=== PATIENT | female | born 1965 | race Caucasian/White ===

== ENCOUNTER → 2017-11-27 14:28 | Outpatient (CLI) | payer OTHER, SELFPAY | PROVIDERS: PCP Family Medicine; Visit Provider Family Medicine | DX: G47.33 Obstructive sleep apnea (adult) (pediatric) (principal) | CPT/HCPCS: 95806 ==

== ENCOUNTER → 2019-01-02 19:51 | Outpatient (CLI) | payer OTHER, SELFPAY | PROVIDERS: PCP Family Medicine; Visit Provider Family Medicine | DX: G47.30 Sleep apnea, unspecified (principal); R06.83 Snoring; I10 Essential (primary) hypertension | CPT/HCPCS: 95810 ==

== ENCOUNTER 2020-11-14 07:37 | Emergency (ER) | payer OTHER, SELFPAY ==
[2020-11-14] VITALS (12 sets, daily range): BP systolic 113–160; BP diastolic 70–100; PULSE 56–79; RESP 11–22; TEMP 36.6–37.1; O2SAT 92–98; BMI 32.2
--- NOTE | 2020-11-14 07:36 | ECG_ITS ---
APPROVED REPORT Exam: Resting ECG HR:76 bpm ECG Measurements Heart Rate 76 AXES OK 146 P 35 QRSd 96 QRS 18 QT 386 T 31 QTc 434 Conclusion Normal sinus rhythm Normal ECG Electronically signed by : Curtis Cast MD 11/16/2020 21:11:47
--- NOTE | 2020-11-14 07:38 | XR_ITS ---
PROCEDURE: XR CHEST 2V CLINICAL HISTORY: Chest Pain COMPARISON: CR CXR CHEST(2 VIEWS-NOT PORTABLE) from 12/18/[address] CHEST W/ CONTRAST from 02/08/2015 FINDINGS: The cardiomediastinal silhouette and pulmonary vascularity are within normal limits. The lungs are clear without infiltrates, suspicious nodules, or pleural effusions. Calcified node in the subcarinal region. Lumbar curvature convex left. IMPRESSION: No acute findings. Dictated by: Leandro Tejada MD 11/14/2020 09:47 Leandro Tejada MD in [place] 11/14/2020 09:47
[2020-11-14 07:49] LABS: Basophils # 0.1 K/mm3 (0-0.2); Basophils % 1.6 % (0.1-2.0); Eosinophils # 0.4 K/mm3 (0.0-0.4); Eosinophils % 5.9 % (0.1-12.0); Hematocrit 42.9 % (37.0-47.0); Hemoglobin 14.2 g/dL (12.2-16.2); Lymphocytes # 2.8 K/mm3 (0.7-4.5); Mean Corpuscular Hemoglobin 30.4 pg (27.0-31.2); Mean Corpuscular Volume 92.1 fl (81-99); Monocytes # 0.3 K/mm3 (0.1-1.0); Monocytes % 4.1 % (1.7-9.3); Neutrophils # 2.6 K/mm3 (1.8-7.8); Neutrophils % 42.5 % (37.0-80.0); Platelet Count 313 K/mm3 (142-424); Red Blood Count 4.66 M/mm3 (4.20-5.40); Red Cell Distribution Width 13.1 % (11.5-17.5); White Blood Count 6.1 K/mm3 (4.8-10.8)
[2020-11-14 07:57] LABS: Anion Gap 10.4 mEq/L (5-15); Blood Urea Nitrogen 8 mg/dl (7-17); Calcium 9.1 mg/dl (8.4-10.2); Carbon Dioxide 30 mmol/L (22.0-30.0); Chloride 106 mmol/L (98-107); Creatinine Clearance Estimated 109 mL/min (50-200); Estimated Glomerular Filt Rate 75 ml/min (>60); GFR (African American) 91 ML/MIN (>60); Glucose 129 mg/dl (74-100); Potassium 3.4 mmoL/L (3.5-5.1); Sodium 143 mmol/L (136-145)
--- NOTE | 2020-11-14 07:57 | CA_ITS ---
APPROVED REPORT EXAM: Comprehensive 2D, Doppler, and color-flow Echocardiogram General Manager Road Production: Glenny Kimbrough CRT Ht: 5 ft 4 in Wt: 188lbs BSA: 1.91 BP: 113/75 mmHg Indications: Chest Pain, Murmur, Shortness of Breath, Obesity, Palpitations, Hyperlipidemia, Hypertension/HDD 2D Dimensions LVOT 1.95 cm (M/F) 1.5-2.5 LA Volume 43.80 mL LA Volume Index 22.90 mL/m2 (M/F) 16-34 M-Mode Dimensions RVDd 2.97 cm (0.9-2.6) LA Diam 4.04 cm (1.9-4.0) LVDd 5.17 cm (3.5-5.7) Ao Diam 3.69 cm (2.0-3.7) LVDs 3.48 cm (3.5-5.7) IVSd 1.42 cm (0.6-1.1) PWd 1.12 cm (0.6-1.1) EF (Teich) 60.70% FS 32.70% EDV (Teich) 127.80 mL TAPSE 1.83 (<1.7) ESV (Teich) 50.20 mL LV Diastology E Decel Time 450.00 (160-240 msec) E/A Ratio 0.79 MED E' 6.50 (< 7 cm/sec) MED A' 7.50 cm/s E'/MED E' Ratio 8.75 (>14) LAT E' 6.80 (<10 cm/sec) LAT A' 5.00 cm/s E/LAT E' Ratio 8.37 (>14) Aortic Valve AI PHT 474.00 ms AO Peak GR. 5.50 mmHg Mitral Valve MV A Velocity 72.00 (40-130 cm/s) E/A Ratio 0.79 MV Decel. Time 450.00 (160-240 ms) Pulmonary Valve PV Peak Velocity 73.00 (50-150 cm/s) Tricuspid Valve TR P. Velocity 183.00 cm/s RAP Estimate 10.00 mmHg RVSP 23.50 mmHg Left Ventricle Technically difficult study because of the patient factors and poor acoustic windows. Endocardial borders are poorly visualized. Left atrium is mildly enlarged, left ventricle is normal size, mild concentric left ventricular hypertrophy, visually estimated ejection fraction 50% with no obvious regional wall motion abnormality, grade 1 diastolic dysfunction seen without tissue Doppler evidence of raise left atrial pressure. Right Ventricle Right atrium and right ventricle are mildly enlarged with normal contractility. Aortic Valve Aortic valve is minimally thickened and fibrosed, there is no aortic stenosis or aortic insufficiency. Mitral Valve Mitral valve is grossly normal, there is mild mitral regurgitation. Tricuspid Valve Tricuspid valve is grossly normal, there is mild tricuspid regurgitation, tricuspid regurgitation jet velocity is inadequate for calculation of the right ventricular systolic pressure. Pulmonic Valve Pulmonic valve is poorly visualized. Great Vessels Aortic root is normal size. Inferior vena cava is poorly visualized. Pericardium No significant pericardial effusion noted. Conclusion 1. Technically difficult study because of the patient factors and poor acoustic windows. Endocardial borders are poorly visualized. Mild biatrial enlargement, normal left ventricular size, visually estimated ejection fraction approximately 50% with no obvious regional wall motion abnormality, grade 1 diastolic dysfunction seen without tissue Doppler evidence of raise left atrial pressure. 2. Mildly enlarged right ventricle with normal contractility. 3. Mild mitral and tricuspid regurgitation. 4. No significant pericardial effusion noted. Electronically signed by : Oleksandr Mcfarlane MD 11/14/2020 21:25:40
[2020-11-14 08:15] LABS: Troponin I < 0.01 ng/ml (0.00-0.034)
[2020-11-14 08:15] LABS: Coronavirus 19, PCR Not Detected (NotDetected); Influenza A, PCR Not Detected (NotDetected); Influenza B, PCR Not Detected (NotDetected)
--- NOTE | 2020-11-14 08:48 | HMH.EDCP ---
ED Disposition Clinical Impression: Nonspecific chest pain Disposition: Home, Self-Care Condition on Discharge: Good Instructions: DI for Atypical Chest Pain Referrals: Chong Sheridan MD [Primary Care Provider] - Joey Langford MD [Staff Physician] - - Critical Care Critical Care Time: No Attestation: On 11/14/20, the high probability of a clinically significant, sudden or life threatening deterioration of the following system(s) required my full and direct attention, intervention and personal management. The time I documented below is in addition to time spent performing reported procedures but includes the following listed in this critical care notation. Medical Decision Making - Medical Records Medical records reviewed: Yes: I reviewed the patient's medical records. - Giovany Inquiry Pt receiving controlled substance: No Vital Signs: 11/14/20 07:37 11/14/20 07:52 11/14/20 08:00 Temperature 98.8 F Temperature Source Oral Pulse Rate 79 71 Pulse Rate [Radial] 76 Respiratory Rate 22 12 14 Blood Pressure 136/77 117/77 Blood Pressure [Right Arm] 160/100 H Blood Pressure Mean 90 Blood Pressure Mean [Right Arm] 120 Blood Pressure Position [Right Arm] Sitting 02 Sat by Pulse Oximetry 98 95 93 L Oxygen Delivery Method Room Air 11/14/20 08:15 11/14/20 08:30 11/14/20 08:46 Temperature Temperature Source Pulse Rate 64 68 72 Pulse Rate [Radial] Respiratory Rate 12 13 14 Blood Pressure 128/70 114/77 113/75 Blood Pressure [Right Arm] Blood Pressure Mean Blood Pressure Mean [Right Arm] Blood Pressure Position [Right Arm] 02 Sat by Pulse Oximetry 98 96 96 Oxygen Delivery Method 11/14/20 09:00 11/14/20 09:15 11/14/20 09:30 Temperature Temperature Source Pulse Rate 65 56 L 59 L Pulse Rate [Radial] Respiratory Rate 20 12 11 L Blood Pressure 120/74 116/70 125/74 Blood Pressure [Right Arm] Blood Pressure Mean Blood Pressure Mean [Right Arm] Blood Pressure Position [Right Arm] 02 Sat by Pulse Oximetry 92 L 96 94 L Oxygen Delivery Method 11/14/20 09:45 11/14/20 10:00 Temperature Temperature Source Pulse Rate 63 61 Pulse Rate [Radial] Respiratory Rate 11 L 12 Blood Pressure 122/79 122/83 Blood Pressure [Right Arm] Blood Pressure Mean Blood Pressure Mean [Right Arm] Blood Pressure Position [Right Arm] 02 Sat by Pulse Oximetry 96 96 Oxygen Delivery Method - Lab Data Lab Results 11/14/20 07:43: WBC 6.1, RBC 4.66, Hgb 14.2, Hct 42.9, MCV 92.1, MCH 30.4, MCHC 33.0, RDW 13.1, Plt Count 313, MPV 8.0, Neut % (Auto) 42.5, Lymph % (Auto) 46.0, Teller % (Auto) 4.1, Eos % (Auto) 5.9, Baso % (Auto) 1.6, Neut # (Auto) 2.6, Lymph # (Auto) 2.8, Teller # (Auto) 0.3, Eos # (Auto) 0.4, Baso # (Auto) 0.1 11/14/20 07:43: Sodium 143, Potassium 3.4 L, Chloride 106, Carbon Dioxide 30, Anion Gap 10.4, BUN 8, Creatinine 0.80, Estimated Creat Clear 109, Estimated GFR 75, Est GFR ( Amer) 91, Glucose 129 H, Calcium 9.1, Troponin I < 0.01 11/14/20 08:00: SARS-CoV-2 (PCR) Not detected, Influenza A Untype (PCR) Not detected, Influenza Type B (PCR) Not detected 11/14/20 10:40: Troponin I < 0.01 Result diagrams: 11/14/20 07:43 11/14/20 07:43 Orders (Tests/Meds): ED MEDICATIONS Generic Name Dose Route Start Last Admin Trade Name Freq PRN Reason Stop Dose Admin Nitroglycerin 0.4 mg 11/14/20 07:53 11/14/20 07:46 Nitroglycerin 0.4mg Sl Tablet SL 12/14/20 07:52 0.4 mg Q5MINP PRN Administration Chest Pain ORDERS Category Date Time Status Troponin I Q3H Lab 11/14/20 13:45 Ordered - Radiology Data #1 Image(s): Chest Image Reviewed: Yes I reviewed the patient's radiology results, Yes I reviewed the patient's radiology image, Yes I have reviewed radiologist's interpretation - ECG Data Tracing #1 I reviewed this ECG and interpreted as documented below: ECG initial impression date: 11/14/20 E
--- NOTE | 2020-11-14 08:56 | PC.NURSE ---
echo lab at bedside
--- NOTE | 2020-11-14 09:59 | HMH.CNCARD ---
History of Present Illness Consult date: 11/14/20 Requesting physician: Aleksandr Wood Consult reason: chest pain Chief complaint: chest pain History of present illness: 55-year-old female presented to the ED with midsternal chest pain and dizziness. Patient states her chest pressure had started yesterday while she was getting ready for work. Patient states she has been under a lot of stress at work and felt that the chest pain was more stress related. Patient states while getting ready for work this morning her chest pressure began to where she became dizzy and developed shortness of breath. Patient states chest pain and pressure was radiating down the right arm. Patient states when she arrived to the emergency room and was given a nitroglycerin, her chest pain had been resolved. Patient denies chest pain, tightness or pressure at this time. Patient denies shortness of breath. Patient does state that she has history of asthma and sometimes her asthma attacks will appear. Patient is a non-smoker. Patient has no known history of coronary artery disease. Patient did state 8 years ago she did undergo [facility] in which she was told her heart was fine. No stents were implemented. Patient does complain of dizziness especially with position change. Patient states she does have history of inner ear issues. Patient has history of hypertension and hyperlipidemia. These are well managed with appropriate medications. Patient has no history of diabetes. History of coronary artery disease in the family. No swelling noted of the lower extremities. Patient denies palpitations. ED initial work-up is being performed. Serial troponins have been drawn. Troponin x1 is negative. EKG revealed normal sinus rhythm with a heart rate of 76 bpm. Chest x-ray revealed no acute findings. Vital signs are stable. Discussed plan of care with Dr. Langford. Orders and recommendations were received from Dr. Langford. No plans for left heart catheterization at this time. Troponin x1 was negative. Will wait on second troponin and if second troponin is negative patient may to be discharged home. Patient will need to follow-up with cardiology within the week and will recommend outpatient testing such as Myoview stress test. Echocardiogram to assess LV function and valve status today. Preliminary echocardiogram reveals EF 50 to 55% with no regional wall motion abnormality. Awaiting on official echocardiogram results. Pending on the echocardiogram results, medication and treatment therapies may be recommended. Patient is currently on beta-gisele and statin. Please notify cardiology of any changes in patient status. Thank you for allowing cardiology to participate in the care of this patient. [facility] History I have reviewed the patient's past medical history: Yes Medical History: Reports:: Lung Disease (asthma) Denies:: Diabetes Mellitus Type 1, Diabetes Mellitus Type 2, Seizures *Have you ever received a pneumonia vaccine?: Yes *Have you received a flu vaccine this season?: Yes Other Medical History: Denies: Blood Transfusion Reaction Laterality Cases: Bilateral: Tonsillectomy - *Social History Smoking Status: Never smoker Alcohol Intake: never *Occupational Status:: unemployed Household Members: spouse *Travel in the last 8 weeks: Inside the [facility] Family Hx:: No significant family history Meds Home Medications Medication Instructions Recorded Confirmed Type Bisoprolol Fumarate [Bisoprolol 5 mg PO DAILY 11/14/20 11/14/20 History 5mg Tablet] Buspirone HCl [Buspirone 15 mg 15 mg PO BID 11/14/20 11/14/20 History Tablets] Citalopram Hydrobromide 40 mg PO DAILY 11/14/20 11/14/20 History [Citalopram 40mg Tablet] Duloxetine HCl 60 mg PO DAILY 11/14/20 11/14/20 History Furosemide [Lasix 20mg tab] 20 mg PO BID 11/14/20 11/14/20 History Pantoprazole Sodium [Protonix
[2020-11-14 11:10] LABS: Troponin I < 0.01 ng/ml (0.00-0.034)
== END 2020-11-14 11:32 | disposition home or self-care (01) ==
PROVIDERS: Emergency Provider Emergency Medicine; PCP Family Medicine
DX: R07.9 Chest pain, unspecified (principal); K21.9 Gastro-esophageal reflux disease without esophagitis; Z20.822 Contact with and (suspected) exposure to COVID-19; J45.909 Unspecified asthma, uncomplicated; Z88.0 Allergy status to penicillin; Z88.2 Allergy status to sulfonamides; Z79.899 Other long term (current) drug therapy
CPT/HCPCS: 36415; 71046; 80048; 84484; 85025; 93005; 93306; 99284; C9803; U0003; U0005

== ENCOUNTER → 2020-12-05 06:58 | Outpatient (CLI) | payer SELFPAY ==
--- NOTE | 2020-12-05 06:59 | CT_ITS ---
PROCEDURE: CT HEART W CALCIUM SCORE CLINICAL HISTORY: chest pain COMPARISON: No exams were available for comparison TECHNIQUE: Axial images obtained with sagittal and coronal reformats. All CT scans at the facility use one or more dose reduction, viz: automated exposure control, ma/kV adjustment per patient size (including targeted exams where dose is matched to indication, i.e. head), or iterative reconstruction technique. FINDINGS: The coronary artery calcium score is 32. Mild calcific plaque burden with moderate cardiovascular disease risk IMPRESSION: Mild calcific plaque burden with moderate cardiovascular disease risk Dictated by: Leandro Tejada MD 12/09/2020 12:55 Leandro Tejada MD in [place] 12/09/2020 12:55
== END ==
PROVIDERS: PCP Family Medicine; Visit Provider Internal Medicine Cardiovascular Disease
DX: Z13.6 Encounter for screening for cardiovascular disorders (principal); Z82.49 Family history of ischemic heart disease and other diseases of the circulatory system
CPT/HCPCS: 75571

== ENCOUNTER → 2020-12-05 07:05 | Outpatient (CLI) | payer OTHER, SELFPAY ==
--- NOTE | 2020-12-05 07:12 | NM_ITS ---
APPROVED REPORT Exam: Nuclear Stress Test Indication: HTN, HYPERLIPIDEMIA, FM HX., C.P., SOB Patient Location: Outpatient Stress Tech: Martha Collins [place] Tech:MARIA ELENA Lenz RT (R)(N)(M) Ht: 5 ft 4 in Wt: 193 lbs Bra Size: A HR: 64 bpm BP: 154/88 mmHg BSA: 1.93 m2 BMI: 33.1 History: HTN, HYPERLIPIDEMIA, FM HX., C.P., SO Procedure: Patient received a 0.4 mg of intravenous Lexiscan, resting heart rate 64 bpm, resting blood pressure 154/88 mmHg, with Lexiscan maximum heart rate achived was 87 bpm which is % of the maximum predicted heart rate and blood pressure was 152/87 mmHg. With Lexiscan, patient denied any complaint of chest pain. PT C/O DIZZINESS, AND NAUSEA NO PRONE IMAGES COULD BE PERFORMED Electrocardiogram Resting electrocardiogram showed sinus rhythm, with Lexiscan there is less than 1.[address] segment depression noted from the baseline EKG. The EKG portion of the Lexiscan is nondiagnostic. Cardiac Stress and Resting SPECT Images: Cardiac Stress and Resting SPECT images were obtained using technetium 99m Myoview 30.0 mCi stress and 10.74 mCi at rest. Gated SPECT for analysis of segmental wall motion and calculation of the ejection fraction also done. Prone images were not obtained. Cardiac stress and resting SPECT images show mild reversible defect involving the anterior apical wall, computer derived ejection fraction is 49% with no regional wall motion abnormality, right ventricle is normal size and contractility. Conclusion: 1. The EKG portion of the Lexiscan is nondiagnostic. 2. Scintigraphic evidence of mild reversible ischemia involving the anterior apical wall, computer derived ejection fraction is 49% with no regional wall motion abnormality, right ventricle is normal size and contractility. 3. Abnormal Lexiscan Myoview study. Electronically signed by : Oleksandr Mcfarlane MD 12/05/2020 21:12:32
--- NOTE | 2020-12-05 08:08 | CA_ITS ---
APPROVED REPORT EXAM: Limited 2D Echocardiogram Certified Prosthetist: Tala Hernández RVT Ht: 5 ft 1 in Wt: 193lbs BSA: 1.86 BP: 148/92 mmHg Indications: CP,SOA,R/O HOCM,HTN,HLD,DEFINITY ONLY Echo Enhancing Agent Indication: Endocardial border delineation Agent(s) / Amount(s) Used: Definity 2 cc Conclusion 1. Limited echocardiogram with Definity contrast was performed. 2. Normal left ventricular size, there is no asymmetrical septal hypertrophy, visually estimated ejection fraction 40%, there is marked hypokinesis involving mid to distal septum and anterior wall. There is no left ventricular thrombus seen. 3. No significant pericardial effusion noted. Electronically signed by : Oleksandr Mcfarlane MD 12/05/2020 21:33:42
--- NOTE | 2020-12-05 09:23 | CA_ITS ---
APPROVED REPORT Exam: Pharmacologic Technologist: PAMELA JIMENEZ, Ht: 5 ft 1 in Wt: 193 lbs BSA: 1.86 m2 HR: 64 bpm BP: 154/88 mmHg Indications: CP Medical History Medications: Trazadone,,,,, Pantoprazole,,,,, Citalopram,,,,, Buspirone,,,,, DulOXETINE,,,,, BisOPROLOL,,,,, Potassium,,,,, Furosemide,,,,, Stress Test Details Test: LEXISCAN HR Resting HR: 64 bpm Max Heart Rate (APMHR): 167 bpm Max HR Achieved: 92 bpm Target HR (85% APMHR): 141 bpm % of APMHR: 55 Recovery HR: 71 bpm BP Resting BP: 154/88 mmHg Max BP: 155/91 mmHg Recovery BP: 144.0/92.0 mmHg ECG Resting ECG: SR with PVC Clinical Exercise duration: 04:18 min Highest Stage Achieved: Exercise capacity: 1.0 METs Stress ECG Conclusion Lexiscan portion completed. Pt c/o shortness of breath during peak infusion. Symptoms: No CP, (+) SOB during peak infusion. Resolved in recovery. Arrhythmias/Ectopy: Occ PVC. ST-T Changes: Less than 1.5mm ST Depression. Conclusion: Images to follow. Electronically signed by : Oleksandr Mcfarlane MD 12/05/2020 21:06:01
== END ==
PROVIDERS: PCP Family Medicine; Visit Provider Internal Medicine Cardiovascular Disease
DX: R06.00 Dyspnea, unspecified (principal); R07.89 Other chest pain; I10 Essential (primary) hypertension; E78.5 Hyperlipidemia, unspecified; R06.83 Snoring; R40.0 Somnolence; Z82.49 Family history of ischemic heart disease and other diseases of the circulatory system
CPT/HCPCS: 78452; 93017; 93308; A9502; J2785; Q9957

== ENCOUNTER → 2020-12-15 10:59 | Outpatient (CLI) | payer OTHER, SELFPAY | PROVIDERS: PCP Family Medicine; Visit Provider Nurse Practitioner Family | DX: R06.00 Dyspnea, unspecified (principal); R07.89 Other chest pain; I10 Essential (primary) hypertension; E78.5 Hyperlipidemia, unspecified; R06.83 Snoring; R40.0 Somnolence; R60.9 Edema, unspecified; Z82.49 Family history of ischemic heart disease and other diseases of the circulatory system | CPT/HCPCS: 93270 ==

== ENCOUNTER → 2020-12-24 09:09 | Outpatient (CLI) | payer OTHER, SELFPAY ==
[2020-12-24 09:40] LABS: Basophils # 0.1 K/mm3 (0-0.2); Basophils % 1.6 % (0.1-2.0); Eosinophils # 0.2 K/mm3 (0.0-0.4); Eosinophils % 4.6 % (0.1-12.0); Hematocrit 42.3 % (37.0-47.0); Hemoglobin 13.8 g/dL (12.2-16.2); Lymphocytes # 2.4 K/mm3 (0.7-4.5); Lymphocytes % 48.4 % (10-50); Mean Corpuscular HGB Conc 32.6 g/dL (31.8-35.4); Mean Corpuscular Hemoglobin 30.2 pg (27.0-31.2); Mean Corpuscular Volume 92.6 fl (81-99); Mean Platelet Volume 8.4 fl (7.4-10.4); Monocytes # 0.3 K/mm3 (0.1-1.0); Neutrophils % 39.5 % (37.0-80.0); Platelet Count 321 K/mm3 (142-424); Red Blood Count 4.57 M/mm3 (4.20-5.40); Red Cell Distribution Width 12.7 % (11.5-17.5)
[2020-12-24 11:00] LABS: Anion Gap 9.8 mEq/L (5-15); Blood Urea Nitrogen 12 mg/dl (7-17); Calcium 9.6 mg/dl (8.4-10.2); Carbon Dioxide 31 mmol/L (22.0-30.0); Chloride 104 mmol/L (98-107); Estimated Glomerular Filt Rate 88 ml/min (>60); GFR (African American) 106 ML/MIN (>60); Glucose 92 mg/dl (74-100); Potassium 3.8 mmoL/L (3.5-5.1); Sodium 141 mmol/L (136-145)
== END ==
PROVIDERS: Visit Provider Nurse Practitioner Family
DX: Z01.812 Encounter for preprocedural laboratory examination (principal); Z11.52 Encounter for screening for COVID-19; R06.00 Dyspnea, unspecified; R42 Dizziness and giddiness; I20.9 Angina pectoris, unspecified; I10 Essential (primary) hypertension; I42.9 Cardiomyopathy, unspecified; R94.39 Abnormal result of other cardiovascular function study; I63.9 Cerebral infarction, unspecified; E78.5 Hyperlipidemia, unspecified; R06.83 Snoring; R40.0 Somnolence; Z82.49 Family history of ischemic heart disease and other diseases of the circulatory system
CPT/HCPCS: 36415; 80048; 85025; C9803; U0003; U0005

== ENCOUNTER 2020-12-26 07:51 | Day surgery (SDC) | payer OTHER, SELFPAY ==
[2020-12-26] VITALS (11 sets, daily range): BP systolic 115–144; BP diastolic 75–86; PULSE 60–70; RESP 16–19; O2SAT 92–100; BMI 35.6
--- NOTE | 2020-12-26 07:06 | IR_ITS ---
APPROVED REPORT Patient Location: Outpatient Cuff Setter: MARIA ELENA Ewing RT (R) PROCEDURES Left heart catheterization Left ventriculogram Selective coronary angiogram INDICATION Worsening angina, Abnormal Myoview, Informed consent was obtained prior to the procedure. COMPLICATIONS NONE Estimated Blood Loss: LESS THAN 10 ML TECHNIQUE One percent lidocaine used to anesthetize the right anterior aspect of the wrist. The right radial artery was accessed via the Seldinger technique. A 6 Upper Sorbian sheath was placed in the right radial artery. 2.5 mg of verapamil, 800 mcg of nitroglycerin, 1mg Lidocaine and 5000 U Heparin were given through the arterial sheath. The trap catheter was also used to perform left heart catheterization, left ventriculogram and selective coronary angiogram. At the end of the procedure the sheath was removed good hemostasis was achieved using Traclet band, patient was transferred to the postop holding area in stable condition. ANGIOGRAPHIC RESULTS The left main artery Normal The left anterior descending artery The proximal segment is without angiographic stenosis as is the entire LAD system. OTTONIEL II flow was present throughout The circumflex artery Codominant large without angiographic stenosis however slow OTTONIEL II flow is present The right coronary artery Is without angiographic stenosis accompanied by OTTONIEL II flow The STEWART ventriculogram reveals Slightly dilated ventricle ejection fraction 45 to 50% The left ventricular end-diastolic pressure 15 mmHg IMPRESSION No angiographic stenosis Diffuse OTTONIEL II flow consistent with moderate to severe endothelial dysfunction Dilated ventricle with slightly reduced ejection fraction Borderline elevated LVEDP PLAN 1. Treatment of endothelial dysfunction 2. Antianginal medications 3. Risk factor modification Electronically signed by : Joey Langford MD 12/26/2020 10:33:22
--- NOTE | 2020-12-26 12:03 | SUR.PHASEII ---
1200- 3ml air removed - no bleeding noted
--- NOTE | 2020-12-26 12:20 | SUR.PHASEII ---
1215- 3ml air released, no bleeding noted
--- NOTE | 2020-12-26 12:31 | SUR.PHASEII ---
1230- 3ml air released, no bleeding noted
--- NOTE | 2020-12-26 12:49 | SUR.PHASEII ---
1245- 3ml air released, scant amt blood noted
--- NOTE | 2020-12-26 13:03 | SUR.PHASEII ---
1315- 3ml air removed, scant amount blood noted
--- NOTE | 2020-12-26 13:24 | SUR.PHASEII ---
1315- remaining air and radial band removed. Dry, sterile dressing of tegaderm and 4x4 applied. No additional bleeding noted.
== END 2020-12-26 13:30 | disposition home or self-care (01) ==
LOC: CATHLAB 07:53
PROVIDERS: PCP Family Medicine; Visit Provider Internal Medicine
DX: I25.118 Atherosclerotic heart disease of native coronary artery with other forms of angina pectoris (principal); E78.5 Hyperlipidemia, unspecified; I10 Essential (primary) hypertension; I42.9 Cardiomyopathy, unspecified; Z82.49 Family history of ischemic heart disease and other diseases of the circulatory system; R94.39 Abnormal result of other cardiovascular function study; Z79.899 Other long term (current) drug therapy
CPT/HCPCS: 93458; 99152; C1725; C1769; J1644; Q9967

== ENCOUNTER 2021-01-07 09:12 | Emergency (ER) | payer OTHER, SELFPAY ==
[2021-01-07 09:27] VITALS: BP 177/93; PULSE 68; RESP 16; TEMP 37.2; O2SAT 95; BMI 31.9
[2021-01-07 09:30] VITALS: BP 177/93; PULSE 68; RESP 16; TEMP 37.2
--- NOTE | 2021-01-07 09:48 | HMH.EDUTC ---
[facility] [place] Disposition Clinical Impression: Sjogren syndrome with other organ involvement Otitis media Qualifiers: Otitis media type: suppurative Chronicity: acute Laterality: bilateral Recurrence: non-recurrent Spontaneous tympanic membrane rupture: without spontaneous rupture Qualified Code(s): H66.003 - Acute suppurative otitis media without spontaneous rupture of ear drum, bilateral Upper respiratory infection Qualifiers: URI type: unspecified URI Qualified Code(s): J06.9 - Acute upper respiratory infection, unspecified Disposition: Home, Self-Care Condition on Discharge: Good Instructions: Middle Ear Infection, Methylprednisolone Additional Instructions: Drink plenty of fluids. Take tylenol or ibuprofen for pain or fever. Take the medications as directed. Follow up with your regular doctor. GO TO THE ER FOR ANY WORSENING SYMPTOMS Prescriptions: methylPREDNISolone [Medrol] 4 mg PO DIRECTED 6 Days #21 packet Transmission Status: Received by [facility] #[id number] Propylene Glycol [Systane Complete] 1 drp OP NEEDED PRN #10 ml PRN Reason: Dry Eye(S) Transmission Status: Received by [facility] #[id number] Azithromycin [Z-George 250mg Tab*] 250 mg PO UD DOSE PK #6 tab Transmission Status: Received by [facility] #[id number] Referrals: Chong Sheridan MD [Primary Care Provider] - Time of Disposition: 10:07 Medical Decision Making - Medical Records Medical records reviewed: No: I reviewed the patient's medical records. - Giovany Inquiry Pt receiving controlled substance: No Vital Signs: 01/07/21 09:27 01/07/21 09:30 Temperature 98.9 F 98.9 F Temperature Source Oral Pulse Rate 68 Pulse Rate [Left] 68 Respiratory Rate 16 16 Blood Pressure 177/93 H Blood Pressure [Right Arm] 177/93 H Blood Pressure Mean [Right Arm] 121 02 Sat by Pulse Oximetry 95 [facility] [place] HPI - General Stated complaint: rt ear pain Time Seen by Provider: 01/07/21 09:48 Mode of Arrival: Ambulatory Source of Information: Patient Limitations: No Limitations Description of Symptoms (Recalled from Triage Doc. by RN): pt c/o bilateral ear aches with the R being the worst. x1 wk. HEENT Symptoms (Recalled from RN notes): Yes (bilateral ear aches) Resp Symptoms (Recalled from RN notes): No Skin Symptoms (Recalled from RN notes): No MS Symptoms (Recalled from RN notes): No Functional Status (Recalled from RN notes): na - History of Present Illness Provider Complaint: she c/o bilateral ear pain for the past 1 week. Her right ear is worse than her left.She also has some sinus congestion and right sided sore throat. She has a history of Sjogren's Syndrome. She states that it causes her to have more issues with ear infections than she should have. She also needs a refill on her eye drops for dry eyes. - Related Data Home Medications Medication Instructions Recorded Confirmed Bisoprolol Fumarate [Bisoprolol 5 mg PO DAILY 11/14/20 01/02/21 5mg Tablet] Buspirone HCl [Buspirone 15 mg 15 mg PO BID 11/14/20 01/02/21 Tablets] Citalopram Hydrobromide 40 mg PO DAILY 11/14/20 01/02/21 [Citalopram 40mg Tablet] Duloxetine HCl 60 mg PO DAILY 11/14/20 01/02/21 Furosemide [Lasix 20mg tab] 20 mg PO BID 11/14/20 01/02/21 potassium chloride 20 mEq 20 meq PO QID tab 11/17/20 01/02/21 tablet,extended release(part/cryst) trazodone 50 mg tablet 50 mg PO HS tab 11/17/20 01/02/21 ergocalciferol (vitamin D2) 1,250 1,250 mcg PO WEEKLY cap 12/15/20 01/02/21 mcg (50,000 unit) capsule hydroxychloroquine 200 mg tablet 200 mg PO BID tab 12/15/20 01/02/21 Famotidine [Acid Translator] 20 mg PO DAILY 12/26/20 01/02/21 Pantoprazole Sodium 40 mg PO DAILY 12/26/20 01/02/21 Previous Rx's Medication Instructions Recorded isosorbide mononitrate 60 mg 60 mg PO DAILY #30 tab 01/02/21 tablet,extended release 24 hr sacubitril 24 mg-valsartan 26 mg 1 tab PO BID #60 tab 01/02/21 tablet Azithromycin [Z-Pa
== END 2021-01-07 10:09 | disposition home or self-care (01) ==
PROVIDERS: Emergency Provider Nurse Practitioner Family; PCP Family Medicine
DX: M35.09 Sjogren syndrome with other organ involvement (principal); H66.003 Acute suppurative otitis media without spontaneous rupture of ear drum, bilateral; J06.9 Acute upper respiratory infection, unspecified; I10 Essential (primary) hypertension; E78.5 Hyperlipidemia, unspecified; F41.8 Other specified anxiety disorders
CPT/HCPCS: 99202; G0463

== ENCOUNTER → 2021-02-06 09:10 | Outpatient (CLI) | payer OTHER, SELFPAY ==
[2021-02-06 11:05] LABS: Anion Gap 10.9 mEq/L (5-15); Blood Urea Nitrogen 12 mg/dl (7-17); Calcium 9.4 mg/dl (8.4-10.2); Carbon Dioxide 31 mmol/L (22.0-30.0); Chloride 101 mmol/L (98-107); Estimated Glomerular Filt Rate 75 ml/min (>60); GFR (African American) 90 ML/MIN (>60); Glucose 102 mg/dl (74-100); Magnesium 1.8 mg/dl (1.6-2.3); Potassium 3.9 mmoL/L (3.5-5.1); Sodium 139 mmol/L (136-145)
[2021-02-06 11:23] LABS: Free T4 (Free Thyroxine) 0.77 ng/dl (0.78-2.19)
[2021-02-06 11:37] LABS: Thyroid Stimulating Hormone 0.89 uIU/mL (0.465-4.68)
== END ==
PROVIDERS: Visit Provider Physician Assistant
DX: R07.89 Other chest pain (principal); I10 Essential (primary) hypertension; I42.0 Dilated cardiomyopathy; E78.2 Mixed hyperlipidemia; M35.09 Sjogren syndrome with other organ involvement; E87.6 Hypokalemia
CPT/HCPCS: 36415; 80048; 83735; 84439; 84443

== ENCOUNTER 2021-02-23 09:21 | Emergency (ER) | payer OTHER, SELFPAY ==
[2021-02-23 09:47] VITALS: BP 129/81; PULSE 71; RESP 18; TEMP 36.7; O2SAT 98; BMI 32.4
[2021-02-23 09:55] LABS: UTC Strep Screen (Rapid) Negative (Negative)
[2021-02-23 10:06] VITALS: BP 129/81; PULSE 71; RESP 18; TEMP 36.7
--- NOTE | 2021-02-23 10:49 | HMH.EDUTC ---
[facility] Clinical Impression: Otitis media Qualifiers: Otitis media type: suppurative Chronicity: acute Laterality: right Recurrence: non-recurrent Spontaneous tympanic membrane rupture: without spontaneous rupture Qualified Code(s): H66.001 - Acute suppurative otitis media without spontaneous rupture of ear drum, right ear Disposition: Home, Self-Care Condition on Discharge: Good Instructions: Middle Ear Infection, Methylprednisolone Injection Additional Instructions: Drink plenty of fluids. Take tylenol or ibuprofen for pain or fever. Take the medications as directed. Follow up with your regular doctor. GO TO THE ER FOR ANY WORSENING SYMPTOMS Don't start the oral steroids (prednisone) until tomorrow, since you had the shot here today. Prescriptions: predniSONE [Deltasone 10mg tablet] 10 mg PO DAILY 9 Days #21 tab Transmission Status: Received by [facility] #[id number] Referrals: Chong Sheridan MD [Primary Care Provider] - Yossi Wheeler MD [Staff Physician] - Forms: Work/School Release Time of Disposition: 11:10 Medical Decision Making - Medical Records Medical records reviewed: No: I reviewed the patient's medical records. - [place] Inquiry Pt receiving controlled substance: No Vital Signs: 02/23/21 09:47 02/23/21 10:06 Temperature 98.1 F 98.1 F Temperature Source Oral Pulse Rate 71 Pulse Rate [Right] 71 Respiratory Rate 18 18 Blood Pressure 129/81 Blood Pressure [Right Arm] 129/81 Blood Pressure Mean [Right Arm] 97 02 Sat by Pulse Oximetry 98 - Lab Data Lab results reviewed: Yes: I reviewed the patient's lab results. Lab Results 02/23/21 09:54: Strep Scn Rapid Clinic Negative Orders (Tests/Meds): ED MEDICATIONS Discontinued Medications Generic Name Dose Route Start Last Admin Trade Name Freq PRN Reason Stop Dose Admin Methylprednisolone Sodium Succinate 125 mg 02/23/21 10:57 02/23/21 11:01 Methylprednisolone Sod Succ 125mg Vial IM 02/23/21 10:58 125 mg ONCE ONE Administration ORDERS Category Date Time Status Strep Screen Confirmation Routine Micro 02/23/21 09:54 Received [facility] - General Stated complaint: sore throat, cough Time Seen by Provider: 02/23/21 10:00 Mode of Arrival: Ambulatory Source of Information: Patient Limitations: No Limitations Description of Symptoms (Recalled from Triage Doc. by RN): pt c/o a cough, sinus congestion, ears aching and sore throat x1 wk. pt saw her pcp on 1.3 and was given amoxicillin. pt states it is not helping. HEENT Symptoms (Recalled from RN notes): Yes Resp Symptoms (Recalled from RN notes): Yes Skin Symptoms (Recalled from RN notes): No MS Symptoms (Recalled from RN notes): No Functional Status (Recalled from RN notes): wnl - History of Present Illness Provider Complaint: She states that she is having left ear pain again. She has a lot of issues with her ears and sinuses related to allergies. She was treated for an ear infection around 1 month ago and it got better, but her symptoms have returned now. - Related Data Home Medications Medication Instructions Recorded Confirmed Bisoprolol Fumarate [Bisoprolol 5 mg PO DAILY 11/14/20 02/06/21 5mg Tablet] Buspirone HCl [Buspirone 15 mg 15 mg PO BID 11/14/20 02/06/21 Tablets] Duloxetine HCl 60 mg PO DAILY 11/14/20 02/06/21 Furosemide [Lasix 20mg tab] 20 mg PO BID 11/14/20 02/06/21 potassium chloride 20 mEq 20 meq PO QID tab 11/17/20 02/06/21 tablet,extended release(part/cryst) trazodone 50 mg tablet 50 mg PO HS tab 11/17/20 02/06/21 ergocalciferol (vitamin D2) 1,250 1,250 mcg PO WEEKLY cap 12/15/20 01/30/21 mcg (50,000 unit) capsule hydroxychloroquine 200 mg tablet 200 mg PO BID tab 12/15/20 02/06/21 Pantoprazole Sodium 40 mg PO DAILY 12/26/20 02/06/21 Previous Rx's Medication Instructions Recorded isosorbide mononitrate 60 mg 60 mg PO DAILY #30 tab 01/02/21 tablet,extended release
== END 2021-02-23 11:19 | disposition home or self-care (01) ==
PROVIDERS: Emergency Provider Nurse Practitioner Family; PCP Family Medicine
DX: H66.001 Acute suppurative otitis media without spontaneous rupture of ear drum, right ear (principal)
CPT/HCPCS: 87880; 96372; 99202; C9803; G0463; U0003; U0005

== ENCOUNTER 2021-04-23 20:40 | Observation (INO) | payer OTHER, SELFPAY ==
[2021-04-23] VITALS (8 sets, daily range): BP systolic 121–161; BP diastolic 80–98; PULSE 69–85; RESP 16–22; TEMP 36.7; O2SAT 94–100; BMI 31.9
--- NOTE | 2021-04-23 20:38 | ECG_ITS ---
APPROVED REPORT Exam: Resting ECG HR:83 bpm ECG Measurements Heart Rate 83 AXES TN 144 P 61 QRSd 98 QRS 24 QT 358 T 47 QTc 398 Conclusion SINUS RHYTHM WITH OCCASIONAL VENTRICULAR PREMATURE COMPLEXES BORDERLINE ECG INTERPRETATION BASED ON A DEFAULT AGE OF 42 YEARS UNCONFIRMED REPORT Electronically signed by : Curtis Cast MD 04/24/2021 19:49:58
--- NOTE | 2021-04-23 20:46 | XR_ITS ---
PROCEDURE INFORMATION: Exam: XR Chest Exam date and time: 04/23/2021 8:46 PM Age: 56 years old Clinical indication: Sternal or substernal pain; Additional info: Cp TECHNIQUE: Imaging protocol: XR of the chest. Views: 2 views. COMPARISON: CR XR CHEST 2V 11/14/2020 8:19 AM FINDINGS: Lungs: Unremarkable. No consolidation. Pleural spaces: Unremarkable. No pleural effusion. No pneumothorax. Heart/Mediastinum: Stable 3 cm calcified mediastinal nodule. Bones/joints: Degenerative changes of the shoulders. Mild scoliosis. No acute fracture. IMPRESSION: Chronic changes without acute process.
--- NOTE | 2021-04-23 20:51 | HMH.EDCP ---
ED Disposition Clinical Impression: Unstable angina pectoris, Diastolic dysfunction, Obesity (BMI 30-39.9) Disposition: Admitted As Inpatient Condition on Discharge: Good - Critical Care Critical Care Time: No Attestation: On , the high probability of a clinically significant, sudden or life threatening deterioration of the following system(s) required my full and direct attention, intervention and personal management. The time I documented below is in addition to time spent performing reported procedures but includes the following listed in this critical care notation. Medical Decision Making - Medical Records Medical records reviewed: Yes: I reviewed the patient's medical records. - Giovany Inquiry Pt receiving controlled substance: No Vital Signs: 04/23/21 20:40 Temperature 98.0 F Temperature Source Oral Pulse Rate [Right] 85 Respiratory Rate 22 Blood Pressure [Right Arm] 146/86 H Blood Pressure Mean [Right Arm] 106 02 Sat by Pulse Oximetry 98 - Lab Data Lab results reviewed: Yes: I reviewed the patient's lab results. Lab Results 04/23/21 20:40: WBC 7.9, RBC 4.02 L, Hgb 12.4, Hct 38.1, MCV 94.7, MCH 30.7, MCHC 32.4, RDW 13.2, Plt Count 327, MPV 8.0, Neut % (Auto) 29.6 L, Lymph % (Auto) 57.4 H, [place] % (Auto) 6.0, Eos % (Auto) 4.6, Baso % (Auto) 2.3 H, Neut # (Auto) 2.3, Lymph # (Auto) 4.5, [place] # (Auto) 0.5, Eos # (Auto) 0.4, Baso # (Auto) 0.2, Total Counted 100, Neutrophils % (Manual) 30 L, Band Neutrophils % 1.0, Lymphocytes % (Manual) 61 H, Monocytes % (Manual) 3, Eosinophils % (Manual) 5 H, Platelet Estimate Normal, RBC Morphology Normal, ESR 38 H 04/23/21 20:40: Sodium 141, Potassium 3.6, Chloride 103, Carbon Dioxide 29, Anion Gap 12.6, BUN 11, Creatinine 0.70, Estimated Creat Clear 122, Estimated GFR 87, Est GFR ( Amer) 106, Glucose 93, Calcium 9.2, Total Bilirubin 0.4, AST 40 H, ALT 32, Alkaline Phosphatase 100, Troponin I < 0.01, C-Reactive Protein 1.0, Total Protein 7.4, Albumin 4.4, Globulin 3.0, Albumin/Globulin Ratio 1.5, Amylase 106, Lipase 123, Procalcitonin 0.062 04/23/21 21:21: SARS-CoV-2 (PCR) Not detected, Influenza A Untype (PCR) Not detected, Influenza Type B (PCR) Not detected Result diagrams: 04/23/21 20:40 04/23/21 20:40 Orders (Tests/Meds): ED MEDICATIONS Generic Name Dose Route Start Last Admin Trade Name Freq PRN Reason Stop Dose Admin Sodium Chloride 1,000 mls @ 999 mls/hr 04/23/21 21:00 Sod Chlor 0.9% 1000ml Bag IV 04/23/21 22:00 .Q1H1M MARTIR Nitroglycerin/Dextrose 250 mls @ 3 mls/hr 04/23/21 21:15 04/23/21 21:14 Nitroglycerin 50mg/250ml D5w IV 05/23/21 21:14 10 mcg/min .Q24H MARTIR 3 mls/hr Administration Protocol 10 MCG/MIN Discontinued Medications Generic Name Dose Route Start Last Admin Trade Name Freq PRN Reason Stop Dose Admin Aspirin 243 mg 04/23/21 21:27 04/23/21 21:30 Aspirin 81mg Chewable Tablet PO 04/23/21 21:28 243 mg ONCE ONE Administration Nitroglycerin 0.4 mg 04/23/21 20:51 04/23/21 20:52 Nitroglycerin 0.4mg Sl Tablet SL 04/23/21 20:52 0.4 mg ONCE ONE Administration ORDERS Category Date Time Status Troponin I Q3H Lab 04/23/21 23:47 Ordered Troponin I Q3H Lab 04/24/21 02:47 Ordered - Radiology Data #1 Image(s): Chest Image Reviewed: Yes I have reviewed radiologist's interpretation Preliminary Findings: Normal/NAD - ECG Data Tracing #1 Normal Sinus Rhythm: Yes Ischemic changes: non-specific ST-T wave changes - Physician Consults Physician Consulted: anne marie Reason -: Pt condition Medical Decision Narrative: had chest pain consistent with unstable angina and has been compliant - recent ht cath and echo and gxt - will need to be admitted for serial enz and treatment and card consult Chest Pain HPI - General Chief Complaint: Chest Pain Stated Complaint: CHest Pain Time Seen by Provider: 04/23/21 20:45 Mode of Arrival: Wheelchair Source of Informati
[2021-04-23 20:55] LABS: Basophils # 0.2 K/mm3 (0-0.2); Basophils % 2.3 % (0.1-2.0); Eosinophils # 0.4 K/mm3 (0.0-0.4); Eosinophils % 4.6 % (0.1-12.0); Hematocrit 38.1 % (37.0-47.0); Hemoglobin 12.4 g/dL (12.2-16.2); Lymphocytes # 4.5 K/mm3 (0.7-4.5); Lymphocytes % 57.4 % (10-50); Mean Corpuscular HGB Conc 32.4 g/dL (31.8-35.4); Mean Corpuscular Hemoglobin 30.7 pg (27.0-31.2); Mean Corpuscular Volume 94.7 fl (81-99); Monocytes # 0.5 K/mm3 (0.1-1.0); Neutrophils # 2.3 K/mm3 (1.8-7.8); Neutrophils % 29.6 % (37.0-80.0); Platelet Count 327 K/mm3 (142-424); Red Blood Count 4.02 M/mm3 (4.20-5.40); Red Cell Distribution Width 13.2 % (11.5-17.5); White Blood Count 7.9 K/mm3 (4.8-10.8)
[2021-04-23 20:57] LABS: MANUAL DIFFERENTIAL MANUAL DIFFERENTIAL (MANUAL DIFF)
[2021-04-23 21:08] LABS: Alanine Aminotransferase 32 U/L (12-78); Albumin Level 4.4 g/dl (3.5-5.0); Albumin/Globulin Ratio 1.5 (1.1-1.8); Alkaline Phosphatase 100 U/L (38-126); Amylase 106 U/L (30-110); Anion Gap 12.6 mEq/L (5-15); Aspartate Amino Transferase 40 U/L (14-36); Bilirubin,Total 0.4 mg/dl (0.2-1.3); Blood Urea Nitrogen 11 mg/dl (7-17); Calcium 9.2 mg/dl (8.4-10.2); Carbon Dioxide 29 mmol/L (22.0-30.0); Chloride 103 mmol/L (98-107); Creatinine Clearance Estimated 122 mL/min (50-200); Eosinophils % 5 % (0-3); Estimated Glomerular Filt Rate 87 ml/min (>60); GFR (African American) 106 ML/MIN (>60); Glucose 93 mg/dl (74-100); Lipase 123 U/L (23-300); Lymphocytes % 61 % (10-50); Monocytes % 3 % (2-9); Neutrophils % 30 % (42-76); Platelet Estimate Normal; Potassium 3.6 mmoL/L (3.5-5.1); RBC Morphology Normal; Sodium 141 mmol/L (136-145); Total Cells Counted 100; Total Protein,Serum 7.4 g/dl (6.3-8.2)
[2021-04-23 21:21] LABS: Troponin I < 0.01 ng/ml (0.00-0.034)
[2021-04-23 21:25] LABS: Procalcitonin 0.062 ng/mL (0.0-2.0)
[2021-04-23 21:29] LABS: Coronavirus 19, PCR Not Detected (NotDetected); Influenza A, PCR Not Detected (NotDetected); Influenza B, PCR Not Detected (NotDetected)
[2021-04-23 21:31] LABS: Erythrocyte Sedimentation Rate 38 mm/hr (0-30)
[2021-04-24] VITALS (12 sets, daily range): BP systolic 121–141; BP diastolic 78–95; PULSE 73–95; RESP 16–18; TEMP 36.8–37.1; O2SAT 95–98; BMI 31.7
[2021-04-24 00:24] LABS: Troponin I < 0.01 ng/ml (0.00-0.034)
--- NOTE | 2021-04-24 00:30 | INFXCTL.NOTE ---
Called report to Carlee Duval RN
--- NOTE | 2021-04-24 01:31 | PC.NURSE ---
pt arrived to floor at 0120 via wheelchair from ED
[2021-04-24 03:05] LABS: Troponin I < 0.01 ng/ml (0.00-0.034)
--- NOTE | 2021-04-24 05:07 | PC.NURSE ---
pt has remained on nitro drip, currently infusing at 10, has not complained of pain or SOA, has remained on room air, O2 sats 97-98%, HR 73-87, systolic BP 121-127
[2021-04-24 06:14] LABS: Basophils # 0.1 K/mm3 (0-0.2); Basophils % 1.1 % (0.1-2.0); Eosinophils # 0.3 K/mm3 (0.0-0.4); Eosinophils % 5.6 % (0.1-12.0); Hematocrit 35.9 % (37.0-47.0); Hemoglobin 11.8 g/dL (12.2-16.2); Lymphocytes # 2.9 K/mm3 (0.7-4.5); Lymphocytes % 47.7 % (10-50); Mean Corpuscular HGB Conc 32.9 g/dL (31.8-35.4); Mean Corpuscular Hemoglobin 31.3 pg (27.0-31.2); Mean Corpuscular Volume 95.1 fl (81-99); Mean Platelet Volume 8.2 fl (7.4-10.4); Monocytes # 0.3 K/mm3 (0.1-1.0); Monocytes % 5.5 % (1.7-9.3); Neutrophils # 2.4 K/mm3 (1.8-7.8); Platelet Count 302 K/mm3 (142-424); Red Blood Count 3.78 M/mm3 (4.20-5.40)
[2021-04-24 06:18] LABS: Anion Gap 12.6 mEq/L (5-15); Blood Urea Nitrogen 11 mg/dl (7-17); Calcium 8.9 mg/dl (8.4-10.2); Carbon Dioxide 28 mmol/L (22.0-30.0); Chloride 104 mmol/L (98-107); Chol/HDL Ratio 4.8 (1-3.5); Cholesterol 223 mg/dl (140-200); Creatinine Clearance Estimated 122 mL/min (50-200); Estimated Glomerular Filt Rate 87 ml/min (>60); GFR (African American) 106 ML/MIN (>60); Glucose 98 mg/dl (74-100); HDL Cholesterol 46 mg/dl (40-60); Magnesium 1.9 mg/dl (1.6-2.3); Potassium 3.6 mmoL/L (3.5-5.1); Sodium 141 mmol/L (136-145); Triglycerides 158 mg/dl (30-150); VLDL Cholesterol 32 mg/dL (0-40)
[2021-04-24 06:29] LABS: Direct LDL Cholesterol 117.11 mg/dL (100-129)
--- NOTE | 2021-04-24 07:39 | HMH.PHAVTE ---
[facility] Pharmacy VTE Monitoring - Patient Demographics Admission date: 04/24/21 Report Date: 04/24/21 Time: 07:39 Allergies/Adverse Reactions: Patient Allergies aspirin Allergy (Intermediate, Verified 04/24/21 01:36) NA-NAUSEA Penicillins Allergy (Intermediate, Verified 04/24/21 01:36) I-HIVES Sulfa (Sulfonamide Antibiotics) Allergy (Intermediate, Verified 04/24/21 01:36) HALLUCINATIONS Height: 1.63 m Weight: 84.368 kg Patient Problems: Current Active Problems Unstable angina pectoris (Acute) Diastolic dysfunction (Acute) Obesity (BMI 30-39.9) (Acute) - VTE Risk Labs: VTE Related Lab Results Hgb 11.8 g/dL (12.2-16.2) L 04/24/21 05:23 Hct 35.9 % (37.0-47.0) L 04/24/21 05:23 Plt Count 302 K/mm3 (142-424) 04/24/21 05:23 BUN 11 mg/dl (7-17) 04/24/21 05:23 Creatinine 0.70 mg/dl (0.52-1.04) 04/24/21 05:23 Estimated Creat Clear 122 mL/min (50-200) 04/23/21 20:40 Was VTE Risk Assessment Performed: Yes VTE Score: 5 VTE Risk Level: Low Risk Clinical Trial Participant: No - Prophylaxis VTE Prophylaxis Ordered?: Yes Types of VTE Prophylaxis: TEDS Knee High
--- NOTE | 2021-04-24 09:23 | HMH.PHAINT ---
home medication list verified using the list from outpatient pharmacy
--- NOTE | 2021-04-24 09:37 | HMH.HP ---
*Admission Date: 04/24/21 *Chief complaint: Chest pain *History of present illness: pt c/o squeezing chest pain that started 15 mins prior to arrival [facility] History I have reviewed the patient's past medical history: Yes Medical History: Reports:: Anxiety, Asthma, Cardiomyopathy, Depression, Heart Murmur, Hyperlipidemia, Hypertension, Lung Disease Denies:: Cancer, Diabetes Mellitus Type 1, Diabetes Mellitus Type 2, Internal Pacemaker, MRSA, Seizures *Have you ever received a pneumonia vaccine?: No *Have you received a flu vaccine this season?: No Other Medical History: Reports: Arthritis, Other. Denies: Blood Transfusion Reaction Laterality Cases: Bilateral: Tonsillectomy Other Surgeries: Yes: Appendectomy, Cholecystectomy, Colonoscopy, Hysterectomy-Total, Tubal Ligation. No: Pacemaker Amputation: No Fractures: Yes (ankle rt) - *Social History Smoking Status: Never smoker Alcohol Intake: never Substance Use Type: denies use *Occupational Status:: employed Housing: house Household Members: spouse *Travel in the last 8 weeks: None - Psychiatric History Pschychiatric History:: Reports:: Anxiety, Depression Family Hx:: Cancer, Diabetes, Heart Attack, Hypertension, Stroke Review of Systems - Review of Systems Review of systems:: pertinent systems reviewed and negative unless documented below - *Neurologic Denies headache(s), Denies seizure-like activity Meds Home Medications Medication Instructions Recorded Confirmed Type Bisoprolol Fumarate [Bisoprolol 5 mg PO DAILY 11/14/20 04/24/21 History 5mg Tablet] Buspirone HCl [Buspirone 15 mg 15 mg PO BID 11/14/20 04/24/21 History Tablets] Duloxetine HCl 60 mg PO DAILY 11/14/20 04/24/21 History Furosemide [Lasix 20mg tab] 20 mg PO TID 11/14/20 04/24/21 History potassium chloride 20 mEq 20 meq PO BID tab 11/17/20 04/24/21 History tablet,extended release(part/cryst) trazodone 50 mg tablet 50 mg PO HS tab 11/17/20 04/24/21 History ergocalciferol (vitamin D2) 1,250 1,250 mcg PO WEEKLY cap 12/15/20 04/24/21 History mcg (50,000 unit) capsule hydroxychloroquine 200 mg tablet 200 mg PO BID tab 12/15/20 04/24/21 History Pantoprazole Sodium 40 mg PO DAILY 12/26/20 04/24/21 History famotidine 20 mg tablet 20 mg PO DAILY #30 tab 02/14/21 04/24/21 Rx Citalopram Hydrobromide 40 mg PO DAILY 04/23/21 04/24/21 History [Citalopram 40mg Tablet] Isosorbide Mononitrate [Isosorbide 60 mg PO DAILY 04/23/21 04/24/21 History Mononitrate ER] Sacubitril/Valsartan [Entresto] 1 tab PO BID 04/23/21 04/24/21 History Gabapentin [Gabapentin 100mg Cap] 100 mg PO BID 04/24/21 04/24/21 History Pregabalin [Lyrica 75mg Cap] 75 mg PO BID 04/24/21 04/24/21 History Allergies Allergy/AdvReac Type Severity Reaction Status Date / Time aspirin Allergy Intermediate NA-NAUSEA Verified 04/24/21 01:36 Penicillins Allergy Intermediate I-HIVES Verified 04/24/21 01:36 Sulfa (Sulfonamide Allergy Intermediate HALLUCINATI Verified 04/24/21 01:36 Antibiotics) ONS Exam Vital signs and Labs for Last 24 Hours: Temp Pulse Resp BP Pulse Ox 98.4 F 87 17 134/82 98 04/24/21 08:00 04/24/21 08:00 04/24/21 08:00 04/24/21 08:00 04/24/21 08:00 Laboratory Results - last 24 hr 04/23/21 20:40: WBC 7.9, RBC 4.02 L, Hgb 12.4, Hct 38.1, MCV 94.7, MCH 30.7, MCHC 32.4, RDW 13.2, Plt Count 327, MPV 8.0, Neut % (Auto) 29.6 L, Lymph % (Auto) 57.4 H, [place] % (Auto) 6.0, Eos % (Auto) 4.6, Baso % (Auto) 2.3 H, Neut # (Auto) 2.3, Lymph # (Auto) 4.5, [place] # (Auto) 0.5, Eos # (Auto) 0.4, Baso # (Auto) 0.2, Total Counted 100, Neutrophils % (Manual) 30 L, Band Neutrophils % 1.0, Lymphocytes % (Manual) 61 H, Monocytes % (Manual) 3, Eosinophils % (Manual) 5 H, Platelet Estimate Normal, RBC Morphology Normal, ESR 38 H 04/23/21 20:40: Sodium 141, Potassium 3.6, Chloride 103, Carbon Dioxide 29, Anion Gap 12.6, BUN 11, Creatinine 0.70, Estimated Creat Clear 122, Estimated GFR 87, Est GFR ( Amer
--- NOTE | 2021-04-24 12:26 | HMH.CNCARD ---
History of Present Illness Consult date: 04/24/21 Requesting physician: Michael Guido Consult reason: chest pain Chief complaint: chest pain Additional Medical History:: 1. Chest pain A. Left heart catheterization, 12/2020, ANGIOGRAPHIC RESULTS The left main artery Normal The left anterior descending artery The proximal segment is without angiographic stenosis as is the entire LAD system. OTTONIEL II flow was present throughout The circumflex artery Codominant large without angiographic stenosis however slow OTTONIEL II flow is present The right coronary artery Is without angiographic stenosis accompanied by OTTONIEL II flow The STEWART ventriculogram reveals Slightly dilated ventricle ejection fraction 45 to 50% The left ventricular end-diastolic pressure 15 mmHg IMPRESSION No angiographic stenosis Diffuse OTTONIEL II flow consistent with moderate to severe endothelial dysfunction Dilated ventricle with slightly reduced ejection fraction Borderline elevated LVEDP PLAN 1. Treatment of endothelial dysfunction 2. Antianginal medications 3. Risk factor modification Electronically signed by : Joey Langford MD 12/26/2020 10:33:22 2. Family history of hypertrophic cardiomyopathy 3. Hypertension 4. Hyperlipidemia 5. History of asthma 6. History of dilated cardiomyopathy A. Echocardiogram, 11/2020, 1. Limited echocardiogram with Definity contrast was performed. 2. Normal left ventricular size, there is no asymmetrical septal hypertrophy, visually estimated ejection fraction 40%, there is marked hypokinesis involving mid to distal septum and anterior wall. There is no left ventricular thrombus seen. 3. No significant pericardial effusion noted. Electronically signed by : Oleksandr Mcfarlane MD 12/05/2020 21:33:42 History of present illness: 56-year-old white female with known history of endothelial dysfunction and normal coronary arteries by cardiac catheterization November 2020 presented to the emergency department for worsening chest pain that started yesterday while watching TV. She denies any significant shortness of breath, diaphoresis, nausea or vomiting. Patient was admitted overnight for observation. Troponins have returned normal x3. Echocardiogram preliminary reading shows an EF of 55%. Nitroglycerin sublingual was given in the ER with improvement in her chest pain and patient was started on nitroglycerin drip with near resolution of chest pain thereafter. She does have a headache from the nitroglycerin drip. [facility] History Medical History: Reports:: Anxiety, Asthma, Cardiomyopathy, Depression, Heart Murmur, Hyperlipidemia, Hypertension, Lung Disease Denies:: Cancer, Diabetes Mellitus Type 1, Diabetes Mellitus Type 2, Internal Pacemaker, MRSA, Seizures *Have you ever received a pneumonia vaccine?: No *Have you received a flu vaccine this season?: No Other Medical History: Reports: Arthritis, Other. Denies: Blood Transfusion Reaction Laterality Cases: Bilateral: Tonsillectomy Other Surgeries: Yes: Appendectomy, Cholecystectomy, Colonoscopy, Hysterectomy-Total, Tubal Ligation. No: Pacemaker Amputation: No Fractures: Yes (ankle rt) - *Social History Smoking Status: Never smoker Alcohol Intake: never Substance Use Type: denies use *Occupational Status:: employed Housing: house Household Members: spouse *Travel in the last 8 weeks: None - Psychiatric History Pschychiatric History:: Reports:: Anxiety, Depression Family Hx:: Cancer, Diabetes, Heart Attack, Hypertension, Stroke Meds Home Medications Medication Instructions Recorded Confirmed Type Bisoprolol Fumarate [Bisoprolol 5 mg PO DAILY 11/14/20 04/24/21 History 5mg Tablet] Buspirone HCl [Buspirone 15 mg 15 mg PO BID 11/14/20 04/24/21 History Tablets] Duloxetine HCl 60 mg PO DAILY 11/14/20 04/24/21 History Furosemide [Lasix 20mg tab] 20 mg PO TID 11/14/20 04/24/21 History potassium chloride 20 mEq 20 meq PO BID tab 11/17/20 04/24/21 History ta
--- NOTE | 2021-04-24 13:03 | CT_ITS ---
FINAL REPORT TECHNIQUE: Postcontrast axial images of the chest were performed in a CTA protocol. This study was performed with techniques to keep radiation doses as low as reasonably achievable, (ALARA). Individualized dose reduction technique using automated exposure control or adjustment of mA and/or kV according to the patient's size were employed. CLINICAL HISTORY: SOA, CP FINDINGS: A small nodule is seen in the left lobe of the thyroid which is nonspecific. Consider ultrasound for further evaluation. The heart is normal in size. No adenopathy is identified. No pleural or pericardial effusion is identified. The thoracic aorta is normal in caliber with no focal aneurysm or dissection identified. There is no filling defect to suggest pulmonary embolism. There is mild bibasilar atelectasis. No lung infiltrate or mass is identified. The images of the upper abdomen demonstrate a small hiatal hernia but are otherwise unremarkable. IMPRESSION: No evidence for PE on this exam. Small left thyroid lobe nodule, nonspecific. Consider ultrasound for further evaluation. Reviewed, Interpreted and Dictated by Yosef Kee III, MD Transcribed by Karen Heller Authenticated by Yosef Kee III, MD on 04/24/2021 01:56:57 PM [facility]
--- NOTE | 2021-04-24 15:48 | HMH.HPDC ---
General - General Admission date:: 04/24/21 Discharge date: 04/24/21 *Admission Date: 04/24/21 *Chief complaint: Chest Pain *History of present illness: 56-year-old white female with known history of endothelial dysfunction and normal coronary arteries by cardiac catheterization November 2020 presented to the emergency department for worsening chest pain that started yesterday while watching TV. She denies any significant shortness of breath, diaphoresis, nausea or vomiting. Patient was admitted overnight for observation. NTG SL was administered in ED with Chest pressure relief and a NTG GTT was initiated. Troponins were negative x 2 [facility] History I have reviewed the patient's past medical history: Yes Medical History: Reports:: Anxiety, Asthma, Cardiomyopathy, Depression, Heart Murmur, Hyperlipidemia, Hypertension, Lung Disease Denies:: Cancer, Diabetes Mellitus Type 1, Diabetes Mellitus Type 2, Internal Pacemaker, MRSA, Seizures *Have you ever received a pneumonia vaccine?: No *Have you received a flu vaccine this season?: No Other Medical History: Reports: Arthritis, Other. Denies: Blood Transfusion Reaction Laterality Cases: Bilateral: Tonsillectomy Other Surgeries: Yes: Appendectomy, Cholecystectomy, Colonoscopy, Hysterectomy-Total, Tubal Ligation. No: Pacemaker Amputation: No Fractures: Yes (ankle rt) - *Social History Smoking Status: Never smoker Alcohol Intake: never Substance Use Type: denies use *Occupational Status:: employed Housing: house Household Members: spouse *Travel in the last 8 weeks: None - Psychiatric History Pschychiatric History:: Reports:: Anxiety, Depression Family Hx:: Cancer, Diabetes, Heart Attack, Hypertension, Stroke Review of Systems - Review of Systems Review of systems:: pertinent systems reviewed and negative unless documented below - Constitutional Denies chills - Eyes Denies blurry vision, Denies double vision - ENT Denies dizziness, Denies difficulty swallowing - *Cardiovascular Reports chest pain, Reports chest pain at rest, Denies shortness of breath - *Respiratory Denies chest congestion, Denies cough, Denies shortness of breath - *Gastrointestinal Denies abdominal pain, Denies change in stools - *Musculoskeletal Denies joint pain, Denies back pain - Integumentary/Breasts Denies yellowing of the skin, Denies non-healing lesions - *Neurologic Denies headache(s), Denies seizure-like activity - Psychiatric Denies lack of enjoyment, Denies confusion - Endocrine Denies cold intolerance, Denies excessive sweating - Hematologic/Lymphatic Denies easy bleeding, Denies easy bruising - Allergic/Immunologic Denies GI upset with certain foods, Denies lip swelling Exam Vital signs and Labs for Last 24 Hours: Temp Pulse Resp BP Pulse Ox 98.7 F 84 18 136/84 95 04/24/21 12:00 04/24/21 14:00 04/24/21 14:00 04/24/21 14:00 04/24/21 14:00 Laboratory Results - last 24 hr 04/23/21 20:40: WBC 7.9, RBC 4.02 L, Hgb 12.4, Hct 38.1, MCV 94.7, MCH 30.7, MCHC 32.4, RDW 13.2, Plt Count 327, MPV 8.0, Neut % (Auto) 29.6 L, Lymph % (Auto) 57.4 H, [place] % (Auto) 6.0, Eos % (Auto) 4.6, Baso % (Auto) 2.3 H, Neut # (Auto) 2.3, Lymph # (Auto) 4.5, [place] # (Auto) 0.5, Eos # (Auto) 0.4, Baso # (Auto) 0.2, Total Counted 100, Neutrophils % (Manual) 30 L, Band Neutrophils % 1.0, Lymphocytes % (Manual) 61 H, Monocytes % (Manual) 3, Eosinophils % (Manual) 5 H, Platelet Estimate Normal, RBC Morphology Normal, ESR 38 H 04/23/21 20:40: Sodium 141, Potassium 3.6, Chloride 103, Carbon Dioxide 29, Anion Gap 12.6, BUN 11, Creatinine 0.70, Estimated Creat Clear 122, Estimated GFR 87, Est GFR ( Amer) 106, Glucose 93, Calcium 9.2, Total Bilirubin 0.4, AST 40 H, ALT 32, Alkaline Phosphatase 100, Troponin I < 0.01, C-Reactive Protein 1.0, Total Protein 7.4, Albumin 4.4, Globulin 3.0, Albumin/Globulin Ratio 1.5, Amylase 106, Lipase 123, Procalcitonin 0.062 04/23/21 21:21: SARS-CoV-2 (PCR)
--- NOTE | 2021-04-26 11:56 | CARE MANAGER ---
Spoke with patient post-discharge and she states that she is doing well with her new medicine and has no issues.
== END 2021-04-24 17:10 | disposition home or self-care (01) ==
LOC: ER 21:30 → ICU 04-24 13:18
PROVIDERS: Admitting Provider Emergency Medicine; Emergency Provider Emergency Medicine; PCP Family Medicine; Visit Provider Emergency Medicine
DX: R07.9 Chest pain, unspecified (principal); I25.118 Atherosclerotic heart disease of native coronary artery with other forms of angina pectoris; I42.9 Cardiomyopathy, unspecified; I10 Essential (primary) hypertension; Z79.899 Other long term (current) drug therapy; Z88.8 Allergy status to other drugs, medicaments and biological substances; Z20.822 Contact with and (suspected) exposure to COVID-19
CPT/HCPCS: 36415; 71046; 71275; 80048; 80053; 80061; 82150; 83690; 83735; 84145; 84484; 85007; 85025; 85651; 86140; 93005; 93306; 96365; 96367; 99285; C9803; G0378; Q9967; U0003; U0005

== ENCOUNTER → 2021-04-27 14:49 | Outpatient (CLI) | payer OTHER, SELFPAY ==
--- NOTE | 2021-04-27 14:49 | US_ITS ---
FINAL REPORT CLINICAL HISTORY: thyroid nodule FINDINGS: THYROID ULTRASOUND Sonographic images of the thyroid was obtained. The right lobe of the thyroid measures 3.7 x 1.9 x 1.3 cm. The left lobe of the thyroid measures 3.4 x 1.6 x 1.6 cm. The isthmus measures 3 mm. There are multiple bilateral nodules: There is a 4 x 3 x 3 mm nodule in the right lower lobe which is solid and hypoechoic, TI-RADS 4. There is an 11 x 10 x 6 mm nodule in the left mid lobe which is mostly cystic, TI-RADS 1. There is a 6 x 6 x 5 mm nodule in the mid left lobe that is cystic, TI-RADS 1. There is a 14 x 9 x 7 mm nodule in the left lower lobe that appears spongiform, TI-RADS 1. IMPRESSION: Multiple bilateral nodules. Reviewed, Interpreted and Dictated by Yosef Kee III, MD Transcribed by Maryuri Navarrete Authenticated by Yosef Kee III, MD on 04/27/2021 04:47:[address] [facility]
== END ==
PROVIDERS: PCP Family Medicine; Visit Provider Emergency Medicine
DX: E04.1 Nontoxic single thyroid nodule (principal)
CPT/HCPCS: 76536

== ENCOUNTER → 2021-06-16 11:20 | Outpatient (CLI) | payer OTHER, SELFPAY ==
[2021-06-16 13:01] LABS: Alanine Aminotransferase 26 U/L (12-78); Albumin Level 4.4 g/dl (3.5-5.0); Albumin/Globulin Ratio 1.6 (1.1-1.8); Alkaline Phosphatase 87 U/L (38-126); Anion Gap 12.4 mEq/L (5-15); Aspartate Amino Transferase 32 U/L (14-36); Bilirubin,Total 0.4 mg/dl (0.2-1.3); Blood Urea Nitrogen 14 mg/dl (7-17); Calcium 9.7 mg/dl (8.4-10.2); Carbon Dioxide 34 mmol/L (22.0-30.0); Chloride 100 mmol/L (98-107); Estimated Glomerular Filt Rate 58 ml/min (>60); GFR (African American) 70 ML/MIN (>60); Globulin 2.7 g/dL (1.3-3.2); Glucose 69 mg/dl (74-100); Potassium 3.4 mmoL/L (3.5-5.1); Sodium 143 mmol/L (136-145); Total Protein,Serum 7.1 g/dl (6.3-8.2)
[2021-06-16 13:07] LABS: C-Reactive Protein 0.9 mg/L (0-4)
[2021-06-16 13:19] LABS: 25-OH Vitamin D, Total 19.8 ng/mL (30-100)
[2021-06-16 13:50] LABS: Erythrocyte Sedimentation Rate 33 mm/hr (0-30)
[2021-06-16 14:46] LABS: Basophils # 0.1 K/mm3 (0-0.2); Basophils % 1.4 % (0.1-2.0); Eosinophils # 0.2 K/mm3 (0.0-0.4); Eosinophils % 4.9 % (0.1-12.0); Hematocrit 34.7 % (37.0-47.0); Hemoglobin 11.4 g/dL (12.2-16.2); Lymphocytes # 2.5 K/mm3 (0.7-4.5); Lymphocytes % 50.5 % (10-50); MANUAL DIFFERENTIAL MANUAL DIFFERENTIAL (MANUAL DIFF); Mean Corpuscular HGB Conc 32.8 g/dL (31.8-35.4); Mean Corpuscular Hemoglobin 29.9 pg (27.0-31.2); Mean Corpuscular Volume 91.1 fl (81-99); Mean Platelet Volume 8.4 fl (7.4-10.4); Monocytes # 0.3 K/mm3 (0.1-1.0); Monocytes % 5.6 % (1.7-9.3); Neutrophils # 1.8 K/mm3 (1.8-7.8); Neutrophils % 37.7 % (37.0-80.0); Platelet Count 304 K/mm3 (142-424); Red Blood Count 3.81 M/mm3 (4.20-5.40); Red Cell Distribution Width 13.2 % (11.5-17.5); White Blood Count 4.9 K/mm3 (4.8-10.8)
[2021-06-16 16:06] LABS: Lymphocytes % 59 % (10-50); Monocytes % 6 % (2-9); Neutrophils % 35 % (42-76); Total Cells Counted 100
[2021-06-16 16:07] LABS: Platelet Estimate Normal; RBC Morphology Normal
== END ==
PROVIDERS: PCP Family Medicine; Visit Provider Nurse Practitioner Women's Health
DX: M35.00 Sjogren syndrome, unspecified (principal); E55.9 Vitamin D deficiency, unspecified; Z51.81 Encounter for therapeutic drug level monitoring
CPT/HCPCS: 36415; 80053; 82306; 85007; 85025; 85651; 86140

== ENCOUNTER 2021-07-27 10:10 | Emergency (ER) | payer OTHER, SELFPAY ==
--- NOTE | 2021-07-27 10:26 | HMH.EDUTC ---
[facility] [place] Clinical Impression: Encounter for screening for COVID-19 Disposition: Home, Self-Care Condition on Discharge: Good Instructions: Preventing the Spread of Coronavirus Discharge Instructions Additional Instructions: Drink plenty of fluids. Take tylenol for pain or fever. Follow up with your regular doctor. GO TO THE ER FOR ANY WORSENING SYMPTOMS Quarantine until you know the results of your covid-19 test. If it is positive, the health department should call you and give you further instructions about your length of Quarantine and other things. Notify your school or workplace of your results and follow their instructions regarding return to work/school. Referrals: Chong Sheridan MD [Primary Care Provider] - Time of Disposition: 10:27 Medical Decision Making - Medical Records Medical records reviewed: No: I reviewed the patient's medical records. - Giovany Inquiry Pt receiving controlled substance: No Orders (Tests/Meds): ORDERS Category Date Time Status Covid-19 Nasal PCR ([facility]) Routine Lab 07/27/21 10:21 Ordered [facility] [place] - General Stated complaint: covid test Time Seen by Provider: 07/27/21 10:27 - History of Present Illness Provider Complaint: She is here to have a covid-19 test before she can travel on vacation. She denies any symptoms. - Related Data Home Medications Medication Instructions Recorded Confirmed Bisoprolol Fumarate [Bisoprolol 5 mg PO DAILY 11/14/20 05/09/21 5mg Tablet] Buspirone HCl [Buspirone 15 mg 15 mg PO BID 11/14/20 05/09/21 Tablets] Duloxetine HCl 60 mg PO DAILY 11/14/20 05/09/21 Furosemide [Lasix 20mg tablet] 20 mg PO TID 11/14/20 05/09/21 potassium chloride 20 mEq 20 meq PO BID tab 11/17/20 05/09/21 tablet,extended release(part/cryst) trazodone 50 mg tablet 50 mg PO HS tab 11/17/20 05/09/21 hydroxychloroquine 200 mg tablet 200 mg PO BID tab 12/15/20 05/09/21 Pantoprazole Sodium 40 mg PO DAILY 12/26/20 05/09/21 Isosorbide Mononitrate [Isosorbide 60 mg PO DAILY 04/23/21 05/09/21 Mononitrate ER] Sacubitril/Valsartan [Entresto 1 tab PO BID 04/23/21 05/09/21 24/26mg Tablet] Gabapentin [Gabapentin 100mg Cap] 100 mg PO BID 04/24/21 05/09/21 ergocalciferol (vitamin D2) 1,250 1,250 mcg PO WEEKLY PRN cap 05/09/21 05/09/21 mcg (50,000 unit) capsule Previous Rx's Medication Instructions Recorded Ranolazine [Ranexa 500mg ER tablet] 500 mg PO BID 30 Days #60 tab 04/24/21 famotidine 20 mg tablet 20 mg PO DAILY #30 tab 05/17/21 Allergies Allergy/AdvReac Type Severity Reaction Status Date / Time aspirin Allergy Intermediate NA-NAUSEA Verified 05/09/21 10:10 Penicillins Allergy Intermediate I-HIVES Verified 05/09/21 10:10 Sulfa (Sulfonamide Allergy Intermediate HALLUCINATI Verified 05/09/21 10:10 Antibiotics) ONS [facility] History - Hepatitis A Screen Attestation statement:: This patient has been screened for Hepatitis A risk factors. Medical History: Reports:: Anxiety, Asthma, Cardiomyopathy, Depression, Heart Murmur, Hyperlipidemia, Hypertension, Lung Disease Denies:: Cancer, Diabetes Mellitus Type 1, Diabetes Mellitus Type 2, Internal Pacemaker, MRSA, Seizures Other Medical History: Reports: Arthritis, Other. Denies: Blood Transfusion Reaction Laterality Cases: Bilateral: Tonsillectomy Other Surgeries: Yes: Appendectomy, Cholecystectomy, Colonoscopy, Hysterectomy-Total, Tubal Ligation. No: Pacemaker Amputation: No Fractures: Yes (ankle rt) - Social History Smoking Status: Never smoker Alcohol Intake: never Substance Use Type: denies use Occupational Status: employed Housing: house Household Members: spouse - Psychiatric History Pschychiatric History:: Reports:: Anxiety, Depression Family Hx:: Cancer, Diabetes, Heart Attack, Hypertension, Stroke ROS Obtained: Yes All systems reviewed & no additional complaints - Constitutional Constitutional: Reports system reviewed and no additional complaint
[2021-07-27 10:29] VITALS: BP 120/77; PULSE 70; RESP 17; TEMP 36.6; O2SAT 97; BMI 32.4
[2021-07-27 10:34] VITALS: BP 120/77; PULSE 70; RESP 17; TEMP 36.6
== END 2021-07-27 10:34 | disposition home or self-care (01) ==
PROVIDERS: Emergency Provider Nurse Practitioner Family; PCP Family Medicine
DX: Z03.89 Encounter for observation for other suspected diseases and conditions ruled out (principal); R42 Dizziness and giddiness; R94.31 Abnormal electrocardiogram [ECG] [EKG]; R40.0 Somnolence; Z20.822 Contact with and (suspected) exposure to COVID-19; I10 Essential (primary) hypertension; I20.9 Angina pectoris, unspecified; R01.1 Cardiac murmur, unspecified; I42.9 Cardiomyopathy, unspecified; E78.5 Hyperlipidemia, unspecified; M19.90 Unspecified osteoarthritis, unspecified site; J98.4 Other disorders of lung; J45.909 Unspecified asthma, uncomplicated; Z79.899 Other long term (current) drug therapy; Z88.0 Allergy status to penicillin; Z88.2 Allergy status to sulfonamides; Z88.6 Allergy status to analgesic agent; Z82.49 Family history of ischemic heart disease and other diseases of the circulatory system; Z80.9 Family history of malignant neoplasm, unspecified; Z83.3 Family history of diabetes mellitus
CPT/HCPCS: 99213; C9803; G0463; U0003; U0005

== ENCOUNTER 2022-01-15 09:36 | Emergency (ER) | payer OTHER, SELFPAY ==
[2022-01-15 11:33] VITALS: BP 153/111; PULSE 73; RESP 16; TEMP 36.9; O2SAT 97; BMI 34.0
--- NOTE | 2022-01-15 11:34 | EXP.UTC ---
Discharge Plan Disposition Patient Disposition: Home, Self-Care Condition: Good Prescriptions Prescriptions: New oseltamivir [Tamiflu] 75 mg capsule 75 mg PO BID 5 Days Qty: 10 0RF ondansetron 4 mg Tablet,Disintegrating 4 mg PO Q8H PRN (Reason: Nausea) Qty: 9 0RF azithromycin [Zithromax] 250 mg tablet 250 mg PO UD DOSE PK Qty: 6 0RF Rx Instructions: Take two (2) tablets today, then one (1) tablet days #2 thru #5 No Action trazodone 50 mg tablet 50 mg PO HS hydroxychloroquine 200 mg tablet 200 mg PO BID ergocalciferol (vitamin D2) 1,250 mcg (50,000 unit) capsule 1,250 mcg PO WEEKLY PRN (Reason: Supplement) isosorbide mononitrate 60 mg tablet extended release 24 hr 60 mg PO DAILY Qty: 30 5RF Entresto 24-26 mg tablet See Rx Instructions .ROUTE .COMPLEX Qty: 60 5RF Dose Instruction: TAKE 1 TABLET BY MOUTH TWICE DAILY Rx Instructions: TAKE 1 TABLET BY MOUTH TWICE DAILY famotidine 20 mg tablet See Rx Instructions .ROUTE .COMPLEX Qty: 90 0RF Dose Instruction: TAKE ONE TABLET BY MOUTH ONCE A DAY FOR GERD Rx Instructions: TAKE ONE TABLET BY MOUTH ONCE A DAY FOR GERD pantoprazole 40 MG tablet,delayed release (DR/EC) 40 mg PO DAILY gabapentin 100 MG capsule 100 mg PO BID ranolazine 500 MG tablet extended release 12 hr 500 mg PO BID 30 Days Qty: 60 0RF bisoprolol fumarate 5 MG tablet 5 mg PO DAILY furosemide 20 MG tablet 20 mg PO TID buspirone 15 MG tablet 15 mg PO BID duloxetine 60 MG capsule,delayed release(DR/EC) 60 mg PO DAILY potassium chloride 20 mEq tablet,ER particles/crystals 20 meq PO BID Rx Instructions: take with food Referrals Follow up/Referrals: Chong Sheridan MD [Primary Care Provider] - See instructions Activity Restrictions/Add. Instructions Additional Instructions/Restrictions: Drink plenty of fluids. Take tylenol or ibuprofen for pain or fever. Take the medications as directed. Follow up with your regular doctor. GO TO THE ER FOR ANY WORSENING SYMPTOMS Clinical Impressions Clinical Impression: Sinusitis, Viral syndrome Stand Alone Forms Stand Alone Forms: Work/School Release Instructions Patient Instructions: DI for Sinusitis, DI for Viral Syndrome, Oseltamivir [place] Provider[place] [facility] [place] General Stated complaint: cough,drainage Time Seen by Provider: 01/15/22 11:34 History of Present Illness Provider Complaint: She states that for the past 3 days she has had a cough, sinus congestion, sore throat and she has felt bad. Related Data Home Medications Medication Instructions Recorded Confirmed bisoprolol fumarate 5 mg tablet 5 mg PO DAILY High blood pressure 11/14/20 08/08/21 buspirone 15 mg tablet 15 mg PO BID Anxiety 11/14/20 08/08/21 duloxetine 60 mg capsule,delayed 60 mg PO DAILY Depression 11/14/20 08/08/21 release furosemide 20 mg tablet 20 mg PO TID Edema 11/14/20 08/08/21 potassium chloride 20 mEq 20 meq PO BID Supplement 11/17/20 08/08/21 tablet,extended release(part/cryst) trazodone 50 mg tablet 50 mg PO HS sleep 11/17/20 08/08/21 hydroxychloroquine 200 mg tablet 200 mg PO BID Sjorgen syndrome 12/15/20 08/08/21 pantoprazole 40 mg tablet,delayed 40 mg PO DAILY acid reflux 12/26/20 08/08/21 release gabapentin 100 mg capsule 100 mg PO BID neuropathic pain 04/24/21 08/08/21 ergocalciferol (vitamin D2) 1,250 1,250 mcg PO WEEKLY PRN Supplement 05/09/21 08/08/21 mcg (50,000 unit) capsule Previous Rx's Medication Instructions Recorded ranolazine 500 mg tablet,extended 500 mg PO BID 30 days #60 tabs 04/24/21 release,12 hr isosorbide mononitrate 60 mg 60 mg PO DAILY high blood pressure 08/23/21 tablet,extended release 24 hr #30 tabs sacubitril 24 mg-valsartan 26 mg See Rx Instructions .Route 09/28/21 tablet (Entresto) .COMPLEX #60 tabs famotidine 20 mg tablet See Rx Instructions .R
[2022-01-15 11:38] LABS: UTC Strep Screen (Rapid) Negative (Negative)
[2022-01-15 11:40] LABS: UTC Influenza A Antigen Negative (Negative); UTC Influenza B Antigen Negative (Negative)
[2022-01-15 12:28] LABS: Adenovirus,PCR Not Detected (NotDetected); Bordetella Pertussis Not Detected (NotDetected); Chlamydophila Pneumoniae, PCR Not Detected (NotDetected); Coronavirus 19, PCR Not Detected (NotDetected); Coronavirus 229E Not Detected (NotDetected); Coronavirus OC43 Not Detected (NotDetected); Coronovirus HKU1,PCR Not Detected (NotDetected); Human Metapneumovirus Not Detected (NotDetected); Influenza A, PCR Not Detected (NotDetected); Influenza AH1, 2009 Not Detected (NotDetected); Influenza AH1, PCR Not Detected (NotDetected); Influenza AH3,PCR Not Detected (NotDetected); Influenza B, PCR Not Detected (NotDetected); Mycoplasma Pneumoniae, PCR Not Detected (NotDetected); Parainfluenza 1, PCR Not Detected (NotDetected); Parainfluenza 2, PCR Not Detected (NotDetected); Parainfluenza 3, PCR Not Detected (NotDetected); Parainfluenza 4, PCR Not Detected (NotDetected); Respiratory Syncytial Virus Not Detected (NotDetected); Rhinovirus/Enterovirus Not Detected (NotDetected)
[2022-01-15 12:29] VITALS: BP 153/111; PULSE 73; RESP 18; TEMP 36.9
[2022-01-16 01:03] LABS: Coronavirus NL63 Detected (NotDetected)
== END 2022-01-15 12:29 | disposition home or self-care (01) ==
PROVIDERS: Emergency Provider Nurse Practitioner Family; PCP Family Medicine
DX: U07.1 COVID-19 (principal)
CPT/HCPCS: 87581; 87632; 87798; 87804; 87880; 99212; C9803; G0463; U0003; U0005

== ENCOUNTER → 2022-08-15 12:52 | Outpatient (CLI) | payer OTHER, SELFPAY | PROVIDERS: PCP Family Medicine; Visit Provider Physician Assistant | DX: I10 Essential (primary) hypertension (principal) | CPT/HCPCS: 93306 ==

== ENCOUNTER 2022-09-03 09:15 | Emergency (ER) | payer OTHER, SELFPAY ==
[2022-09-03 09:30] VITALS: BP 101/64; PULSE 71; RESP 23; TEMP 36.9; O2SAT 94; BMI 35.0
--- NOTE | 2022-09-03 09:43 | EXP.UTC ---
Discharge Plan Disposition Patient Disposition: Home, Self-Care Condition: Good Prescriptions Prescriptions: New doxycycline monohydrate 100 mg capsule 100 mg PO BID Qty: 20 0RF benzonatate 100 mg capsule 100 mg PO TID PRN (Reason: cough) Qty: 30 0RF prednisone [prednisone] 20 mg tablet 20 mg PO BID 5 Days Qty: 10 0RF No Action trazodone 50 mg tablet 50 mg PO HS hydroxychloroquine 200 mg tablet 200 mg PO BID ergocalciferol (vitamin D2) 1,250 mcg (50,000 unit) capsule 1,250 mcg PO WEEKLY PRN (Reason: Supplement) levetiracetam 500 mg tablet 500 mg PO BID Linzess 145 mcg capsule 145 mcg PO DAILY triamterene-hydrochlorothiazid 37.5-25 mg tablet 1 tab PO DAILY gabapentin 400 mg capsule 400 mg PO BID nitroglycerin [Nitrostat] 0.4 mg tablet, sublingual 0.4 mg sublingual Q5M PRN (Reason: chest pain) Qty: 20 0RF Rx Instructions: do not exceed 3 doses per episode isosorbide mononitrate 30 mg tablet extended release 24 hr 30 mg PO DAILY Qty: 30 5RF famotidine 20 mg tablet See Rx Instructions .ROUTE .COMPLEX Qty: 90 1RF Dose Instruction: TAKE ONE TABLET BY MOUTH ONCE A DAY FOR GERD Rx Instructions: TAKE ONE TABLET BY MOUTH ONCE A DAY FOR GERD Entresto 24-26 mg tablet See Rx Instructions .ROUTE .COMPLEX Qty: 180 1RF Dose Instruction: TAKE 1 TABLET BY MOUTH TWICE DAILY Rx Instructions: TAKE 1 TABLET BY MOUTH TWICE DAILY pantoprazole 40 mg tablet,delayed release (DR/EC) 20 mg PO DAILY bisoprolol fumarate 5 MG tablet 5 mg PO DAILY furosemide 20 MG tablet 20 mg PO TID buspirone 15 MG tablet 15 mg PO BID potassium chloride 20 mEq tablet,ER particles/crystals 20 meq PO BID Rx Instructions: take with food Referrals Follow up/Referrals: Chong Sheridan MD [Primary Care Provider] - See instructions Activity Restrictions/Add. Instructions Additional Instructions/Restrictions: *Monitor Temp, Over the counter Motrin or Tylenol as directed/as needed Tylenol every 4 hours and Motrin every 6 hours (as long as your family doctor has told you that you can take it) for fever or pain. and straight to ER if unable to lower temp less than 101.0 after medication given *Warm salt water gargles may help to soothe the throat *Throat Lozenges? *Warm fluids like tea with honey may help to soothe the throat? *Sleep elevated *Humidifier/Vaporizer *Flonase 2 sprays in each nostril daily but be aware that it may take 2-3 days before you notice improvement Make sure to separate doses of Docycycline with your Pantoprazole by at least 2 hours Follow up IMMEDIATELY for new or worsening symptoms or no Noticeable improvement over the next 48-72 hours. 911 for difficulty breathing or swallowing Clinical Impressions Clinical Impression: Sinusitis Qualifiers: Sinusitis location: unspecified location Chronicity: unspecified Qualified Code(s): J32.9 - Chronic sinusitis, unspecified Cough Qualifiers: Cough type: unspecified Qualified Code(s): R05.9 - Cough, unspecified Instructions Patient Instructions: Sinusitis, Cough, Doxycycline Discharge ED Provider: Becki Alcantara [facility] [place] General Stated complaint: cough, dizzy, congestion Mode of Arrival: Ambulatory Source of Information: Patient and Spouse Limitations: No Limitations Time Seen by Provider: 09/03/22 09:44 Description of Symptoms (Recalled from Triage Doc. by RN): PATIENT C/O COUGH X 1 MONTH, STOMACH PAIN, BACK PAIN, AND DIZZINESS HEENT Symptoms (Recalled from RN notes): Yes Resp Symptoms (Recalled from RN notes): Yes Skin Symptoms (Recalled from RN notes): No MS Symptoms (Recalled from RN notes): No Functional Status (Recalled from RN notes): WNL History of Present Illness Provider Complaint: Patient states that for about a month she has been having cough, sinus congestion and drainag
[2022-09-03 10:04] VITALS: BP 101/64; PULSE 71; RESP 23; TEMP 36.9; O2SAT 99
== END 2022-09-03 10:07 | disposition home or self-care (01) ==
PROVIDERS: Emergency Provider Nurse Practitioner; PCP Family Medicine
DX: J32.9 Chronic sinusitis, unspecified (principal); R05.9 Cough, unspecified; I42.9 Cardiomyopathy, unspecified; I10 Essential (primary) hypertension; G47.33 Obstructive sleep apnea (adult) (pediatric); R40.0 Somnolence; I20.9 Angina pectoris, unspecified; R06.83 Snoring
CPT/HCPCS: 99212; 99214; G0463

== ENCOUNTER 2022-12-26 09:04 | Emergency (ER) | payer OTHER, SELFPAY ==
--- NOTE | 2022-12-26 09:42 | EXP.UTC ---
Discharge Plan Disposition Patient Disposition: Home, Self-Care Condition: Good Prescriptions Prescriptions: New azithromycin [Zithromax] 250 mg tablet 250 mg PO UD DOSE PK Qty: 6 0RF Rx Instructions: Take two (2) tablets today, then one (1) tablet days #2 thru #5 benzonatate [benzonatate] 100 mg capsule 100 mg PO TIDP PRN (Reason: Cough) Qty: 30 0RF methylprednisolone 4 mg Tablets,Dose Pack 4 mg PO DIRECTED Qty: 21 0RF No Action trazodone 50 mg tablet 50 mg PO HS hydroxychloroquine 200 mg tablet 200 mg PO BID ergocalciferol (vitamin D2) 1,250 mcg (50,000 unit) capsule 1,250 mcg PO WEEKLY PRN (Reason: Supplement) levetiracetam 500 mg tablet 500 mg PO BID Linzess 145 mcg capsule 145 mcg PO DAILY triamterene-hydrochlorothiazid 37.5-25 mg tablet 1 tab PO DAILY gabapentin 400 mg capsule 400 mg PO BID nitroglycerin [Nitrostat] 0.4 mg tablet, sublingual 0.4 mg sublingual Q5M PRN (Reason: chest pain) Qty: 20 0RF Rx Instructions: do not exceed 3 doses per episode famotidine 20 mg tablet See Rx Instructions .ROUTE .COMPLEX Qty: 90 1RF Dose Instruction: TAKE ONE TABLET BY MOUTH ONCE A DAY FOR GERD Rx Instructions: TAKE ONE TABLET BY MOUTH ONCE A DAY FOR GERD Entresto 24-26 mg tablet See Rx Instructions .ROUTE .COMPLEX Qty: 180 1RF Dose Instruction: TAKE 1 TABLET BY MOUTH TWICE DAILY Rx Instructions: TAKE 1 TABLET BY MOUTH TWICE DAILY pantoprazole 40 mg tablet,delayed release (DR/EC) 20 mg PO DAILY bisoprolol fumarate 5 MG tablet 5 mg PO DAILY furosemide 20 MG tablet 20 mg PO TID potassium chloride 20 mEq tablet,ER particles/crystals 20 meq PO BID Rx Instructions: take with food citalopram 40 mg tablet 40 mg PO DAILY Trulance 3 mg tablet 3 mg PO DAILY Referrals Follow up/Referrals: Chong Sheridan MD [Primary Care Provider] - See instructions Activity Restrictions/Add. Instructions Additional Instructions/Restrictions: Drink plenty of fluids. Take tylenol or ibuprofen for pain or fever. Take the medications as directed. Follow up with your regular doctor. GO TO THE ER FOR ANY WORSENING SYMPTOMS Clinical Impressions Clinical Impression: Sinusitis, Pharyngitis Stand Alone Forms Stand Alone Forms: Work/School Release Instructions Patient Instructions: Sinusitis, DI for Sinusitis Discharge [place] Provider: Paddy Burch [facility] [place] General Stated complaint: sinus drainage, cough, sore throat Time Seen by Provider: 12/26/22 09:42 History of Present Illness Provider Complaint: She states that for the past 4 days she has had sinus drainage, cough, and sore throat. Related Data Home Medications Medication Instructions Recorded Confirmed bisoprolol fumarate 5 mg tablet 5 mg PO DAILY High blood pressure 11/14/20 12/26/22 furosemide 20 mg tablet 20 mg PO TID Edema 11/14/20 12/26/22 potassium chloride 20 mEq 20 meq PO BID Supplement 11/17/20 12/26/22 tablet,extended release(part/cryst) trazodone 50 mg tablet 50 mg PO HS sleep 11/17/20 12/26/22 hydroxychloroquine 200 mg tablet 200 mg PO BID Sjorgen syndrome 12/15/20 12/26/22 ergocalciferol (vitamin D2) 1,250 1,250 mcg PO WEEKLY PRN Supplement 05/09/21 12/26/22 mcg (50,000 unit) capsule gabapentin 400 mg capsule 400 mg PO BID 02/01/22 12/26/22 pantoprazole 40 mg tablet,delayed 20 mg PO DAILY acid reflux 02/01/22 12/26/22 release triamterene 37.5 1 tab PO DAILY 02/01/22 12/26/22 mg-hydrochlorothiazide 25 mg tablet levetiracetam 500 mg tablet 500 mg PO BID 08/02/22 12/26/22 linaclotide 145 mcg capsule 145 mcg PO DAILY 08/02/22 12/26/22 (Linzess) citalopram 40 mg tablet 40 mg PO DAILY 12/26/22 12/26/22 plecanatide 3 mg tablet (Trulance) 3 mg PO DAILY 12/26/22 12/26/22 Previous Rx's Medication Instructions Recorded nitroglycerin 0.4 mg sublingual 0.4 mg sublingual Q
[2022-12-26 09:45] VITALS: BP 119/59; PULSE 70; RESP 18; TEMP 37.3; O2SAT 97; BMI 36.0
[2022-12-26 10:31] VITALS: BP 119/59; PULSE 70; RESP 18; TEMP 37.3; O2SAT 97
== END 2022-12-26 10:31 | disposition home or self-care (01) ==
PROVIDERS: Emergency Provider Nurse Practitioner Family; PCP Family Medicine
DX: J01.90 Acute sinusitis, unspecified (principal); J02.9 Acute pharyngitis, unspecified; I20.9 Angina pectoris, unspecified
CPT/HCPCS: 87635; 99212; 99214; G0463

== ENCOUNTER 2024-05-13 11:44 | Emergency (ER) | payer BC, SELFPAY ==
[2024-05-13 11:58] VITALS: BP 154/87; PULSE 82; RESP 20; TEMP 37.1; O2SAT 100; BMI 35.5
--- NOTE | 2024-05-13 12:24 | ED_ITS ---
Discharge Plan Disposition Patient Disposition: Home, Self-Care Condition: Good Prescriptions Prescriptions: New ondansetron 4 mg tablet,disintegrating 4 mg PO QID PRN (Reason: nausea and vomiting) Qty: 10 0RF No Action hydroxychloroquine 200 mg tablet 200 mg PO BID ergocalciferol (vitamin D2) 1,250 mcg (50,000 unit) capsule 25 mcg PO WEEKLY PRN (Reason: Supplement) levetiracetam 500 mg tablet 500 mg PO BID simethicone [Gas Relief Extra Strength] 125 mg capsule 125 mg PO TID ondansetron 4 mg tablet,disintegrating 4 mg PO Q8H PRN (Reason: nausea and vomiting) Qty: 14 0RF triamterene-hydrochlorothiazid 37.5-25 mg tablet 1 tab PO DAILY nitroglycerin [Nitrostat] 0.4 mg tablet, sublingual 0.4 mg sublingual Q5M PRN (Reason: chest pain) Qty: 20 0RF Rx Instructions: do not exceed 3 doses per episode gabapentin 800 mg tablet 800 mg PO DAILY pantoprazole 40 mg tablet,delayed release (DR/EC) 40 mg PO ONCE famotidine 20 mg tablet See Rx Instructions .ROUTE .COMPLEX Qty: 90 3RF Dose Instruction: TAKE ONE TABLET BY MOUTH ONCE A DAY FOR GERD Rx Instructions: TAKE ONE TABLET BY MOUTH ONCE A DAY FOR GERD Entresto 24-26 mg tablet See Rx Instructions .ROUTE .COMPLEX Qty: 60 3RF Dose Instruction: TAKE 1 TABLET BY MOUTH TWICE DAILY Rx Instructions: TAKE 1 TABLET BY MOUTH TWICE DAILY atorvastatin 20 mg tablet 20 mg PO DAILY Qty: 90 3RF bisoprolol fumarate 5 MG tablet 5 mg PO DAILY potassium chloride 20 mEq tablet,ER particles/crystals 20 meq PO BID Rx Instructions: take with food citalopram 40 mg tablet 40 mg PO DAILY trazodone 100 mg tablet 100 mg PO HS furosemide 20 mg tablet 20 mg PO DAILY Referrals Follow up/Referrals: Chong Sheridan MD [Primary Care Provider] - See instructions Tha Curtis MD [Physician] - See instructions Activity Restrictions/Add. Instructions Additional Instructions/Restrictions: Please follow-up with your PCP within 48 hours for recheck of your potassium. I have sent Katheryn into your pharmacy to help with your nausea. If you have any worsening continued or new signs and symptoms follow-up sooner with your PCP or return to the ER as needed. Additionally we found that you have a calcified lymph node that we are referring you to the lung doctor for. Please call tomorrow to make your appointment. Clinical Impressions Clinical Impression: Hypokalemia, Nausea vomiting and diarrhea, Calcified lymph nodes Stand Alone Forms Stand Alone Forms: Work/School Release Instructions Patient Instructions: DI for Diarrhea and Traveler's Diarrhea -- Adult, DI for Nausea -- Adult Print Language Print Language: Bengali Discharge ED Provider: Jordon Haynes General Adult HPI <JUSTICE Schmidt - Last Filed: 05/13/24 16:09> General Chief complaint: Nausea/Vomiting/Diarrhea Stated complaint: vomiting abd pain fever Time Seen by Provider: 05/13/24 12:24 Mode of Arrival: Ambulatory Source of Information: Patient Description of Symptoms (Recalled from ER Triage Doc. by RN): Patient reports that she has been having nausea and vomiting since Saturday. States that she is unable to hold anything down. Patient was seen at the [facility] and advised to come to the ED. History of Present Illness HPI narrative: Patient presents for evaluation of nausea vomiting and diarrhea. Patient reports that since Saturday she has not been able to tolerate any oral intake. She denies any chest pain abdominal pain shortness of breath fever chills hemoptysis hematochezia melena hematemesis hematuria. Patient reports that she has a headache starting today. Patient also relates that she has a cough that she has had for 7 weeks but has not tested positive for COVID and flu.. Related Data Home Medications ?Medication ?Instructions ?Recorded ?Confirmed bisoprolol fumarate 5 mg tablet 5 mg PO DAILY High blood pressure 11/14/20 05/13/24 potassium chloride 20 mEq 20 meq PO BID Supplement 11/17/20 05/13/24 tablet,extended release(part/cryst) hydroxychloroquine 200 mg tablet 200 mg PO BID Sjorgen syndrome 12/15/20 05/13/24 ergocalciferol (vitamin D2) 1,250 25 mcg PO WEEKLY PRN Supplement 05/09/21 05/13/24 mcg (50,000 unit) capsule triamterene 37.5 1 tab PO DAILY 02/01/22 05/13/24 mg-hydrochlorothiazide 25 mg tablet levetiracetam 500 mg tablet 500 mg PO BID 08/02/22 05/13/24 citalopram 40 mg tablet 40 mg PO DAILY 12/26/22 05/13/24 simethicone 125 mg capsule (Gas 125 mg PO TID 08/12/23 05/13/24 Relief Extra Strength) gabapentin 800 mg tablet 800 mg PO DAILY 01/30/24 05/13/24 pantoprazole 40 mg tablet,delayed 40 mg PO ONCE 01/30/24 05/13/24 release furosemide 20 mg tablet 20 mg PO DAILY 05/13/24 05/13/24 trazodone 100 mg tablet 100 mg PO HS 05/13/24 05/13/24 Previous Rx's ?Medication ?Instructions ?Recorded nitroglycerin 0.4 mg sublingual 0.4 mg sublingual Q5M PRN chest 02/01/22 tablet (Nitrostat) pain #20 tabs famotidine 20 mg tablet See Rx Instructions .Route 09/12/23 .COMPLEX #90 tabs sacubitril 24 mg-valsartan 26 mg See Rx Instructions .Route 01/08/24 tablet (Entresto) .COMPLEX #60 tabs atorvastatin 20 mg tablet 20 mg PO DAILY #90 tabs 02/04/24 ondansetron 4 mg disintegrating 4 mg PO Q8H PRN nausea and 05/13/24 tablet vomiting #14 tabs ondansetron 4 mg disintegrating 4 mg PO QID PRN nausea and 05/13/24 tablet vomiting #10 tabs Allergies Allergy/AdvReac Type Severity Reaction Status Date / Time aspirin Allergy Intermediate NA-NAUSEA Verified 05/13/24 11:05 Penicillins Allergy Intermediate I-HIVES Verified 05/13/24 11:05 Sulfa (Sulfonamide Allergy Intermediate HALLUCINATI Verified 05/13/24 11:05 Antibiotics) ONS nut - unspecified Allergy Verified 05/13/24 11:05 [facility] <JUSTICE Schmidt - Last Filed: 05/13/24 16:09> [facility] Disclaimer: The information contained in this section may have been updated after the patient was seen, as this information can be updated by other users. Medical History Bronchitis Dizziness Abnormal cardiovascular stress test Cardiomyopathy Typical angina Daytime somnolence Snoring Family history of hypertrophic cardiomyopathy Dyspnea Social History Smoking Status: Never smoker alcohol intake: never substance use type: denies use current occupational status: employed Travel in the last 8 weeks: Inside the [place] household members: spouse housing: house number of children: 2 current occupational exposures/hazards: No caffeine: Yes Have you lived/traveled outside [place] in past 30 days?: No Contact w/someone who lives/traveled outside US past 30 days?: No Exposure to someone with infectious disease in past 14 days?: No Do you have a fever (greater than 100.4 F or 38 C)?: Yes Have you tested positive for COVID-19: No Exposed to someone with COVID-19 in past 14 days?: No Do you have a sore throat?: No Do you have a cough?: No Do you have any weakness?: No Do you have any diarrhea?: No Are you experiencing any unusual bleeding?: No Do you have any muscle aches/pain?: No Do you have any abdominal pain?: Yes Are you experiencing loss of taste or smell?: No Other Medical History Have you received the Flu Vaccine for this season: No Have you received the Pneumonia Vaccine: No <JUSTICE Schmidt - Last Filed: 05/13/24 16:09> ROS Obtained: Yes Systems reviewed as appropriate & no additional complaints except as documented Physical Exam <JUSTICE Schmidt - Last Filed: 05/13/24 16:09> General General appearance: alert and in no apparent distress Respiratory Respiratory exam: Present normal lung sounds bilaterally Cardiovascular Cardiovascular exam: Present regular rate Neurological Exam Neurological exam: Present alert and oriented X3 Medical Decision Making <JUSTICE Schmidt - Last Filed: 05/13/24 16:09> Medical Records Medical records reviewed: Yes I reviewed the patient's medical records. Screening: Per USPSTF and CDC recommendations, given the prevalence of disease in our region, it is our hospital?s policy to screen for HIV and viral Hepatitis for all patients aged 18 and over and those with ongoing risk factors. [place] Inquiry Pt receiving controlled substance: No Vital Signs: 05/13/24 11:58 05/13/24 15:00 05/13/24 15:30 Temperature 98.8 F Temperature Source Oral Pulse Rate 80 Pulse Rate [Right] 82 Respiratory Rate 20 14 13 Blood Pressure 146/77 H 139/78 Blood Pressure [Right Arm] 154/87 H Blood Pressure Mean Blood Pressure Mean [Right Arm] 109 Blood Pressure Source Blood Pressure Position 02 Sat by Pulse Oximetry 100 95 95 Oxygen Delivery Method Room Air Room Air 05/13/24 16:00 05/13/24 16:30 Temperature 98.0 F Temperature Source Oral Pulse Rate 80 Pulse Rate [Right] Respiratory Rate 17 18 Blood Pressure 121/104 H 135/88 Blood Pressure [Right Arm] Blood Pressure Mean 106 Blood Pressure Mean [Right Arm] Blood Pressure Source Automatic Cuff Blood Pressure Position Sitting 02 Sat by Pulse Oximetry Oxygen Delivery Method Room Air Lab Data Lab results reviewed: Yes I reviewed the patient's lab results. Lab Results 05/13/24 12:30: WBC 5.9, RBC 4.26, Hgb 12.7, Hct 36.7 L, MCV 86.2, MCH 29.8, MCHC 34.6, RDW 13.0, Plt Count 298, MPV 9.8, Neut % (Auto) 50.8, Lymph % (Auto) 39.0, [place] % (Auto) 8.4, Eos % (Auto) 1.0, Baso % (Auto) 0.5, Neut # (Auto) 3.0, Lymph # (Auto) 2.3, [place] # (Auto) 0.5, Eos # (Auto) 0.1, Baso # (Auto) 0.0, PT 10.5, INR 0.93, Sodium 142, Potassium 3.1 L, Chloride 101, Carbon Dioxide 30, Anion Gap 14.1, BUN 19 H, Creatinine 0.80, Estimated Creat Clear 115, Estimated GFR 74, Est GFR ( Amer) 89, Glucose 90, Calcium 10.1, Total Bilirubin 0.9, AST 38 H, ALT 33, Alkaline Phosphatase 106, NT-Pro-B Natriuret Pep 82.2, Total Protein 8.0, Albumin 5.2 H, Globulin 2.8, Albumin/Globulin Ratio 1.9 H, Procalcitonin 0.055 05/13/24 13:21: SARS-CoV-2 (PCR) Not detected, Influenza A Untype (PCR) Not detected, Influenza Type B (PCR) Not detected 05/13/24 12:30 05/13/24 12:30 Orders (Tests/Meds): ED MEDICATIONS Discontinued Medications Generic Name Dose Route Start Last Admin Trade Name Checo PRN Reason Stop Dose Admin Sodium Chloride 1,000 mls @ 999 mls/hr 05/13/24 12:30 05/13/24 12:36 Sod Chlor 0.9% 1000ml Bag IV 05/13/24 13:30 999 mls/hr .Q1H1M ONE Administration Potassium Chloride/Water 100 mls @ 100 mls/hr 05/13/24 13:15 05/13/24 14:28 Potassium Chloride 10meq/100ml Ivpb IV 05/13/24 15:14 100 mls/hr Q1H MARTIR Administration Ondansetron HCl 4 mg 05/13/24 12:30 05/13/24 12:36 Ondansetron 4mg/2ml Vial IV 05/13/24 12:31 4 mg ONCE ONE Administration Potassium Chloride 60 meq 05/13/24 13:14 05/13/24 13:26 Potassium Chloride 20meq Tab PO 05/13/24 13:15 60 meq ONCE ONE Administration ORDERS Category Date Time Status Chest XR 2 view (NOT portable) [XR chest 2V] Stat Exams 05/13/24 13:12 Completed BNP [NT Pro Brain Natriuretic Pep.] Stat Lab 05/13/24 12:30 Completed CBC w/Auto Diff [Complete Blood Count Auto Diff] Stat Lab 05/13/24 12:30 Completed CMP [Comprehensive Metabolic Panel] Stat Lab 05/13/24 12:30 Completed INR [Prothrombin Time INR] Stat Lab 05/13/24 12:30 Completed Procalcitonin Stat Lab 05/13/24 12:30 Completed Rapid PCR Covid and Flu A/B Stat Lab 05/13/24 13:21 Completed Medical Decision Narrative: In summary patient is a 59-year-old female who presents to the emergency department for evaluation of nausea vomiting diarrhea. Patient is hemodynamically stable with a blood pressure 154/87 heart rate 82 satting at 100% on room air breathing 20 times a minute upon arrival, afebrile at 98.8. Physical exam is remarkable for clear breath sounds with no increased work of breathing or adventitious sounds or accessory muscle use, abdomen soft nontender no rebound or guarding no rigidity bowel sounds normal active. Differential diagnosis includes gastroenteritis versus viral syndrome versus upper or lower respiratory tract infection etc. Initial workup will be conducted with hematologic labs plain film chest x-ray respiratory swabs. Initial interventions include crystalloid bolus Zofran. Initial workup reviewed by me and patient's hematologic labs are remarkable for a potassium of 3.1, a normal white count normal H&H no neutrophilic shift, albumin is 5.2 procalcitonin is 0.055 and my informal interpretation of her plain film chest x-ray does not show any acute process however patient has approximately 4-1/2 x 3-1/2 calcified subcarinal lymph node in her chest. Review of her previous imaging shows that this has been present going back to as far as 2020 and appears to be stable given my informal interpretation. I do not know if this has been worked up in any way. Upon repeat evaluation patient is actually improved and is tolerating oral intake. We repleted her potassium with IV and p.o. and patient was able to keep the potassium down.. Given this patient is appropriate for discharge with follow-up with her PCP within 48 hours for recheck of her potassium, referred to pulmonology for ongoing follow-up of the calcified lymph node, prescription for Zofran and instructions on starting a brat diet. <Mike Obrien MD - Last Filed: 05/13/24 16:11> Vital Signs: 05/13/24 11:58 05/13/24 15:00 05/13/24 15:30 Temperature 98.8 F Temperature Source Oral Pulse Rate 80 Pulse Rate [Right] 82 Respiratory Rate 20 14 13 Blood Pressure 146/77 H 139/78 Blood Pressure [Right Arm] 154/87 H Blood Pressure Mean Blood Pressure Mean [Right Arm] 109 Blood Pressure Source Blood Pressure Position 02 Sat by Pulse Oximetry 100 95 95 Oxygen Delivery Method Room Air Room Air 05/13/24 16:00 05/13/24 16:30 Temperature 98.0 F Temperature Source Oral Pulse Rate 80 Pulse Rate [Right] Respiratory Rate 17 18 Blood Pressure 121/104 H 135/88 Blood Pressure [Right Arm] Blood Pressure Mean 106 Blood Pressure Mean [Right Arm] Blood Pressure Source Automatic Cuff Blood Pressure Position Sitting 02 Sat by Pulse Oximetry Oxygen Delivery Method Room Air Lab Data Lab Results 05/13/24 12:30: WBC 5.9, RBC 4.26, Hgb 12.7, Hct 36.7 L, MCV 86.2, MCH 29.8, MCHC 34.6, RDW 13.0, Plt Count 298, MPV 9.8, Neut % (Auto) 50.8, Lymph % (Auto) 39.0, [place] % (Auto) 8.4, Eos % (Auto) 1.0, Baso % (Auto) 0.5, Neut # (Auto) 3.0, Lymph # (Auto) 2.3, [place] # (Auto) 0.5, Eos # (Auto) 0.1, Baso # (Auto) 0.0, PT 10.5, INR 0.93, Sodium 142, Potassium 3.1 L, Chloride 101, Carbon Dioxide 30, Anion Gap 14.1, BUN 19 H, Creatinine 0.80, Estimated Creat Clear 115, Estimated GFR 74, Est GFR ( Amer) 89, Glucose 90, Calcium 10.1, Total Bilirubin 0.9, AST 38 H, ALT 33, Alkaline Phosphatase 106, NT-Pro-B Natriuret Pep 82.2, Total Protein 8.0, Albumin 5.2 H, Globulin 2.8, Albumin/Globulin Ratio 1.9 H, Procalcitonin 0.055 05/13/24 13:21: SARS-CoV-2 (PCR) Not detected, Influenza A Untype (PCR) Not detected, Influenza Type B (PCR) Not detected Orders (Tests/Meds): ED MEDICATIONS Discontinued Medications Generic Name Dose Route Start Last Admin Trade Name Freq PRN Reason Stop Dose Admin Sodium Chloride 1,000 mls @ 999 mls/hr 05/13/24 12:30 05/13/24 12:36 Sod Chlor 0.9% 1000ml Bag IV 05/13/24 13:30 999 mls/hr .Q1H1M ONE Administration Potassium Chloride/Water 100 mls @ 100 mls/hr 05/13/24 13:15 05/13/24 14:28 Potassium Chloride 10meq/100ml Ivpb IV 05/13/24 15:14 100 mls/hr Q1H MARTIR Administration Ondansetron HCl 4 mg 05/13/24 12:30 05/13/24 12:36 Ondansetron 4mg/2ml Vial IV 05/13/24 12:31 4 mg ONCE ONE Administration Potassium Chloride 60 meq 05/13/24 13:14 05/13/24 13:26 Potassium Chloride 20meq Tab PO 05/13/24 13:15 60 meq ONCE ONE Administration ORDERS Category Date Time Status Chest XR 2 view (NOT portable) [XR chest 2V] Stat Exams 05/13/24 13:12 Completed BNP [NT Pro Brain Natriuretic Pep.] Stat Lab 05/13/24 12:30 Completed CBC w/Auto Diff [Complete Blood Count Auto Diff] Stat Lab 05/13/24 12:30 Completed CMP [Comprehensive Metabolic Panel] Stat Lab 05/13/24 12:30 Completed INR [Prothrombin Time INR] Stat Lab 05/13/24 12:30 Completed Procalcitonin Stat Lab 05/13/24 12:30 Completed Rapid PCR Covid and Flu A/B Stat Lab 05/13/24 13:21 Completed Medical Decision Narrative: In summary patient is a 59-year-old female who presents to the emergency department for evaluation of nausea vomiting diarrhea. Patient is hemodynamically stable with a blood pressure 154/87 heart rate 82 satting at 100% on room air breathing 20 times a minute upon arrival, afebrile at 98.8. Physical exam is remarkable for clear breath sounds with no increased work of breathing or adventitious sounds or accessory muscle use, abdomen soft nontender no rebound or guarding no rigidity bowel sounds normal active. Differential diagnosis includes gastroenteritis versus viral syndrome versus upper or lower respiratory tract infection etc. Initial workup will be conducted with hematologic labs plain film chest x-ray respiratory swabs. Initial interventions include crystalloid bolus Zofran. Initial workup reviewed by me and patient's hematologic labs are remarkable for a potassium of 3.1, a normal white count normal H&H no neutrophilic shift, albumin is 5.2 procalcitonin is 0.055 and my informal interpretation of her plain film chest x-ray does not show any acute process however patient has approximately 4-1/2 x 3-1/2 calcified subcarinal lymph node in her chest. Review of her previous imaging shows that this has been present going back to as far as 2020 and appears to be stable given my informal interpretation. I do not know if this has been worked up in any way. Upon repeat evaluation patient is actually improved and is tolerating oral intake. We repleted her potassium with IV and p.o. and patient was able to keep the potassium down.. Given this patient is appropriate for discharge with follow-up with her PCP within 48 hours for recheck of her potassium, referred to pulmonology for ongoing follow-up of the calcified lymph node, prescription for Zofran and instructions on starting a brat diet. I was consulted by the LORI, and we discussed the complexity of the problems being addressed. I approved the treatment and management plan for this patient's care in the emergency department, thus performing a substantive portion of the medical decision making. Mike Obrien MD <Jordon Haynes MD - Last Filed: 05/14/24 15:19> Vital Signs: 05/13/24 11:58 05/13/24 15:00 05/13/24 15:30 Temperature 98.8 F Temperature Source Oral Pulse Rate 80 Pulse Rate [Right] 82 Respiratory Rate 20 14 13 Blood Pressure 146/77 H 139/78 Blood Pressure [Right Arm] 154/87 H Blood Pressure Mean Blood Pressure Mean [Right Arm] 109 Blood Pressure Source Blood Pressure Position 02 Sat by Pulse Oximetry 100 95 95 Oxygen Delivery Method Room Air Room Air 05/13/24 16:00 05/13/24 16:30 Temperature 98.0 F Temperature Source Oral Pulse Rate 80 Pulse Rate [Right] Respiratory Rate 17 18 Blood Pressure 121/104 H 135/88 Blood Pressure [Right Arm] Blood Pressure Mean 106 Blood Pressure Mean [Right Arm] Blood Pressure Source Automatic Cuff Blood Pressure Position Sitting 02 Sat by Pulse Oximetry Oxygen Delivery Method Room Air Lab Data Lab Results 05/13/24 12:30: WBC 5.9, RBC 4.26, Hgb 12.7, Hct 36.7 L, MCV 86.2, MCH 29.8, MCHC 34.6, RDW 13.0, Plt Count 298, MPV 9.8, Neut % (Auto) 50.8, Lymph % (Auto) 39.0, [place] % (Auto) 8.4, Eos % (Auto) 1.0, Baso % (Auto) 0.5, Neut # (Auto) 3.0, Lymph # (Auto) 2.3, [place] # (Auto) 0.5, Eos # (Auto) 0.1, Baso # (Auto) 0.0, PT 10.5, INR 0.93, Sodium 142, Potassium 3.1 L, Chloride 101, Carbon Dioxide 30, Anion Gap 14.1, BUN 19 H, Creatinine 0.80, Estimated Creat Clear 115, Estimated GFR 74, Est GFR ( Amer) 89, Glucose 90, Calcium 10.1, Total Bilirubin 0.9, AST 38 H, ALT 33, Alkaline Phosphatase 106, NT-Pro-B Natriuret Pep 82.2, Total Protein 8.0, Albumin 5.2 H, Globulin 2.8, Albumin/Globulin Ratio 1.9 H, Procalcitonin 0.055 05/13/24 13:21: SARS-CoV-2 (PCR) Not detected, Influenza A Untype (PCR) Not detected, Influenza Type B (PCR) Not detected Orders (Tests/Meds): ED MEDICATIONS Discontinued Medications Generic Name Dose Route Start Last Admin Trade Name Freq PRN Reason Stop Dose Admin Sodium Chloride 1,000 mls @ 999 mls/hr 05/13/24 12:30 05/13/24 12:36 Sod Chlor 0.9% 1000ml Bag IV 05/13/24 13:30 999 mls/hr .Q1H1M ONE Administration Potassium Chloride/Water 100 mls @ 100 mls/hr 05/13/24 13:15 05/13/24 14:28 Potassium Chloride 10meq/100ml Ivpb IV 05/13/24 15:14 100 mls/hr Q1H MARTIR Administration Ondansetron HCl 4 mg 05/13/24 12:30 05/13/24 12:36 Ondansetron 4mg/2ml Vial IV 05/13/24 12:31 4 mg ONCE ONE Administration Potassium Chloride 60 meq 05/13/24 13:14 05/13/24 13:26 Potassium Chloride 20meq Tab PO 05/13/24 13:15 60 meq ONCE ONE Administration ORDERS Category Date Time Status Chest XR 2 view (NOT portable) [XR chest 2V] Stat Exams 05/13/24 13:12 Completed BNP [NT Pro Brain Natriuretic Pep.] Stat Lab 05/13/24 12:30 Completed CBC w/Auto Diff [Complete Blood Count Auto Diff] Stat Lab 05/13/24 12:30 Completed CMP [Comprehensive Metabolic Panel] Stat Lab 05/13/24 12:30 Completed INR [Prothrombin Time INR] Stat Lab 05/13/24 12:30 Completed Procalcitonin Stat Lab 05/13/24 12:30 Completed Rapid PCR Covid and Flu A/B Stat Lab 05/13/24 13:21 Completed Medical Decision Narrative: In summary patient is a 59-year-old female who presents to the emergency department for evaluation of nausea vomiting diarrhea. Patient is hemodynamically stable with a blood pressure 154/87 heart rate 82 satting at 100% on room air breathing 20 times a minute upon arrival, afebrile at 98.8. Physical exam is remarkable for clear breath sounds with no increased work of breathing or adventitious sounds or accessory muscle use, abdomen soft nontender no rebound or guarding no rigidity bowel sounds normal active. Differential diagnosis includes gastroenteritis versus viral syndrome versus upper or lower respiratory tract infection etc. Initial workup will be conducted with hematologic labs plain film chest x-ray respiratory swabs. Initial interventions include crystalloid bolus Zofran. Initial workup reviewed by me and patient's hematologic labs are remarkable for a potassium of 3.1, a normal white count normal H&H no neutrophilic shift, albumin is 5.2 procalcitonin is 0.055 and my informal interpretation of her plain film chest x-ray does not show any acute process however patient has approximately 4-1/2 x 3-1/2 calcified subcarinal lymph node in her chest. Review of her previous imaging shows that this has been present going back to as far as 2020 and appears to be stable given my informal interpretation. I do not know if this has been worked up in any way. Upon repeat evaluation patient is actually improved and is tolerating oral intake. We repleted her potassium with IV and p.o. and patient was able to keep the potassium down.. Given this patient is appropriate for discharge with follow-up with her PCP within 48 hours for recheck of her potassium, referred to pulmonology for ongoing follow-up of the calcified lymph node, prescription for Zofran and instructions on starting a brat diet. I was consulted by the LORI, and we discussed the complexity of the problems being addressed. I approved the treatment and management plan for this patient's care in the emergency department, thus performing a substantive portion of the medical decision making. Mike Obrien MD Critical Care <JUSTICE Schmidt - Last Filed: 05/13/24 16:09> Critical Care Time Critical Care Time: Yes Attestation: On 05/13/24, the high probability of a clinically significant, sudden or life threatening deterioration of the following system(s) required my full and direct attention, intervention and personal management. The time I documented below is in addition to time spent performing reported procedures but includes the following listed in this critical care notation. Total Time Total Critical Care Time: 35
--- NOTE | 2024-05-13 12:25 | PC.NURSE ---
1220hrs, attempted IV x2 and was unsuccesful
--- NOTE | 2024-05-13 12:33 | PC.NURSE ---
patient reports she had the flu last week, she is having RUQ pain and low back pain with burning urination and vomiting.
[2024-05-13] MEDS: 0.9 % SODIUM CHLORIDE 1000ML 1,000 ML 999 ML IV (12:36)
[2024-05-13] MEDS: ONDANSETRON 4MG/2ML VIAL 4 MG IV (12:36)
[2024-05-13 12:39] LABS: Basophils % 0.5 % (0.1-2.0); Eosinophils # 0.1 K/mm3 (0.0-0.4); Hematocrit 36.7 % (37.0-47.0); Hemoglobin 12.7 g/dL (12.2-16.2); Lymphocytes # 2.3 K/mm3 (0.7-4.5); Mean Corpuscular HGB Conc 34.6 g/dL (31.8-35.4); Mean Corpuscular Hemoglobin 29.8 pg (27.0-31.2); Mean Corpuscular Volume 86.2 fl (81-99); Mean Platelet Volume 9.8 fl (7.4-10.4); Monocytes # 0.5 K/mm3 (0.1-1.0); Monocytes % 8.4 % (1.7-9.3); Neutrophils % 50.8 % (37.0-80.0); Platelet Count 298 K/mm3 (142-424); Red Blood Count 4.26 M/mm3 (4.20-5.40); White Blood Count 5.9 K/mm3 (4.8-10.8)
[2024-05-13 12:48] LABS: Chloride 101 mmol/L (98-107)
[2024-05-13 12:49] LABS: Albumin Level 5.2 g/dl (3.5-5.0); Potassium 3.1 mmoL/L (3.5-5.1); Sodium 142 mmol/L (136-145)
[2024-05-13 12:51] LABS: Alanine Aminotransferase 33 U/L (12-78); Aspartate Amino Transferase 38 U/L (14-36); Blood Urea Nitrogen 19 mg/dl (7-17); Creatinine Clearance Estimated 115 mL/min (50-200); Estimated Glomerular Filt Rate 74 ml/min (>60); GFR (African American) 89 ML/MIN (>60)
[2024-05-13 12:52] LABS: Albumin/Globulin Ratio 1.9 (1.1-1.8); Alkaline Phosphatase 106 U/L (38-126); Anion Gap 14.1 mEq/L (5-15); Bilirubin,Total 0.9 mg/dl (0.2-1.3); Calcium 10.1 mg/dl (8.4-10.2); Carbon Dioxide 30 mmol/L (22.0-30.0); Globulin 2.8 g/dL (1.3-3.2); Glucose 90 mg/dl (74-100)
[2024-05-13 12:54] LABS: INR 0.93 (0.9-1.1); Prothrombin Time 10.5 seconds (10.1-12.5)
--- NOTE | 2024-05-13 13:12 | XR_ITS ---
FINAL REPORT CLINICAL HISTORY: Acute cough, nausea vomiting diarrhea FINDINGS: PA and lateral views of the chest are obtained. There is no prior exam for comparison. The cardiac and mediastinal silhouettes are within normal limits. Densely calcified subcarinal lymph nodes are noted. The lungs are clear. There is no pleural effusion, pneumothorax, or acute osseous abnormality. IMPRESSION: No radiographic evidence of acute cardiac or pulmonary disease. Reviewed, Interpreted and Dictated by Tiara Moore MD Transcribed by Acacia Fountain Authenticated and [facility]
[2024-05-13] MEDS: POTASSIUM CHLORIDE 20MEQ TAB 60 MEQ PO (13:26)
[2024-05-13] MEDS: KCl 10mEq/100ml 100 ML 100 MEQ IV ×2 (13:26→14:28)
[2024-05-13 13:30] LABS: Coronavirus 19, PCR Not Detected (NotDetected); Influenza A, PCR Not Detected (NotDetected); Influenza B, PCR Not Detected (NotDetected)
[2024-05-13 13:35] LABS: Procalcitonin 0.055 ng/mL (0.0-2.0)
[2024-05-13 14:06] LABS: NT Pro Brain Natriuretic Pep. 82.2 pg/mL (0-125)
[2024-05-13 15:00] VITALS: BP 146/77; PULSE 80; RESP 14; O2SAT 95
[2024-05-13 15:30] VITALS: BP 139/78; RESP 13; O2SAT 95
[2024-05-13 16:00] VITALS: BP 121/104; RESP 17
[2024-05-13 16:30] VITALS: BP 135/88; PULSE 80; RESP 18; TEMP 36.7; O2SAT 98
== END 2024-05-13 16:30 | disposition home or self-care (01) ==
PROVIDERS: Physician Assistant; Emergency Provider Emergency Medicine; PCP Family Medicine
DX: R11.2 Nausea with vomiting, unspecified (principal); E87.6 Hypokalemia; R19.7 Diarrhea, unspecified; I89.9 Noninfective disorder of lymphatic vessels and lymph nodes, unspecified
CPT/HCPCS: 71046; 80053; 83880; 84145; 85025; 85610; 87636; 96365; 96366; 96375; 99285; J2405; J3480; J7030